=== PATIENT | male | born 1960 | race Caucasian/White ===

== ENCOUNTER 2020-11-14 09:54 | Outpatient (CLI) | payer MEDICAID, SELFPAY ==
[2020-11-14 11:32] LABS: Alanine Aminotransferase 18 U/L (0-41); Albumin Level 3.4 g/dL (3.5-5.2); Alkaline Phosphatase 111 IU/L (40-130); Anion Gap 20.3 (5-19); Aspartate Amino Transferase 20 U/L (0-40); Blood Urea Nitrogen 13 mg/dL (6-20); Calcium 8.4 mg/dL (8.5-10.5); Carbon Dioxide 19 mmol/L (22-29); Chloride 102 mmol/L (98-107); Globulin 3.2 g/dL (1.3-4.6); Glomerular Filtration Rate 115.4 mL/min (90-130); Glucose 120 mg/dL (65-115); NT Pro B Type Natriuretic Pept 7012 pg/mL (0-125); Osmolality Calculated 285 mOsm/kg (285-295); Potassium 4.3 mmol/L (3.5-5.1); Sodium 137 mmol/L (136-145); Total Bilirubin 0.7 mg/dL (0.15-1.2); Total Protein 6.6 g/dL (6.6-8.7)
== END 2020-11-14 09:55 | disposition home or self-care (01) ==
PROVIDERS: PCP Nurse Practitioner Family; Visit Provider Nurse Practitioner Family
DX: I50.9 Heart failure, unspecified (principal)
CPT/HCPCS: 36415; 80053; 83880

== ENCOUNTER → 2020-11-30 11:07 | Outpatient (BNVA) | payer MEDICAID, SELFPAY | PROVIDERS: PCP Nurse Practitioner Family; Visit Provider Nurse Practitioner Family | DX: Z79.01 Long term (current) use of anticoagulants (principal) | CPT/HCPCS: 85610 ==

== ENCOUNTER → 2020-12-03 15:25 | Outpatient (BNVA) | payer MEDICAID, SELFPAY | PROVIDERS: PCP Nurse Practitioner Family; Visit Provider Internal Medicine Cardiovascular Disease | DX: I50.33 Acute on chronic diastolic (congestive) heart failure (principal); Z95.810 Presence of automatic (implantable) cardiac defibrillator; R06.02 Shortness of breath; E78.5 Hyperlipidemia, unspecified; R06.00 Dyspnea, unspecified; I25.119 Atherosclerotic heart disease of native coronary artery with unspecified angina pectoris; I51.3 Intracardiac thrombosis, not elsewhere classified; I48.91 Unspecified atrial fibrillation; I50.22 Chronic systolic (congestive) heart failure; Z79.01 Long term (current) use of anticoagulants | CPT/HCPCS: 80048; 80061; 83880; 85610 ==

== ENCOUNTER 2020-12-08 14:27 | Outpatient (CLI) | payer MEDICAID, SELFPAY ==
--- NOTE | 2020-12-08 15:00 | USCV_ITS ---
Jaime Daugherty Age: 60 Gender: M : 1960 Exam Date: 12/08/2020 14:52 Ordering Phys: Soheila Porter MD ([email or web address]) Technologist: Laurie Cason Exam Location: [facility] [place] Indication: dyspnea, unspecified BP: 96 / 60 HR: 91 Rhythm: Sinus Technical Quality: Adequate MEASUREMENTS (Male / Female) Normal Values 2D ECHO LV Diastolic Diameter PLAX 5.1 cm 4.2 - 5.9 / 3.9 - 5.3 cm LV Systolic Diameter PLAX 3.9 cm IVS Diastolic Thickness 1.4 cm 0.6 - 1.0 / 0.6 - 0.9 cm IVS Systolic Thickness 1.2 cm LVPW Diastolic Thickness 1.0 cm 0.6 - 1.0 / 0.6 - 0.9 cm LVPW Systolic Thickness 1.7 cm LVOT Diameter 2.1 cm LV Ejection Fraction 2D Teich 46.5 % LV Ejection Fraction MOD 2C 29.2 % LV Ejection Fraction 2C AL 28.9 % LA Diameter 4.0 cm LA Width 3.9 cm LA Height 6.3 cm RA Width 3.3 cm RA Height 4.8 cm Aorta at Sinotubular Diameter 3.1 cm DOPPLER AV Peak Velocity 103.0 cm/s LVOT Peak Velocity 92.0 cm/s AV Area Cont Eq vti 3.1 cm squared AV Area Cont Eq pk 3.0 cm squared MV Peak Velocity 120.0 cm/s MV Area PHT 5.5 cm squared Mitral E to A Ratio 7.0 MV E' Velocity 57.5 cm/s Mitral E to MV E' Ratio 14.6 Mitral E to LV E' Lateral Ratio 10.6 Mitral E to LV E' Septal Ratio 23.3 TR Peak Velocity 74.7 cm/s TR Peak Gradient 2.2 mmHg Right Atrial Pressure 3.0 mmHg Pulmonary Artery Systolic Pressu 5.2 mmHg PV Peak Velocity 52.0 cm/s RV Acceleration Time 0.1 s RV Ejection Time 0.3 s RV AcT/ET 0.2 FINDINGS Left Ventricle Mildly dilated LV cavity. Severe diffuse hypokinesia of the septum and anteroseptal segments. Almost akinetic LV apex. Echodensity in the LV apex, suggesting organized thrombus. LV ejection fraction around 29% Right Ventricle ICD leads in the right ventricle. Right Atrium Pacemaker/ICD wires Left Atrium Mildly increased left atrial size. Mitral Valve Moderate mitral valve regurgitation. Minimally thickened mitral valves Aortic Valve No gross abnormalities noted Tricuspid Valve No gross abnormalities noted Pulmonic Valve Not visualized well Pericardium No pericardial effusion. Aorta Normal aortic annulus size. CONCLUSIONS Mildly dilated LV cavity. Multiple wall motion abnormalities as mentioned above. Organized to LV apical thrombus LV ejection fraction around 29%. Mildly increased left atrial size. Pacemaker/ICD wire on the right atrium right ventricle Moderate mitral valve regurgitation. There is no pericardial effusion. No previous study is available for comparison. Dr Soheila Porter MD FACC (Electronically Signed) Final Date: 08 December 2020 19:01 S
== END 2020-12-08 14:28 | disposition home or self-care (01) ==
LOC: US 14:27
PROVIDERS: PCP Nurse Practitioner Family; Visit Provider Internal Medicine Cardiovascular Disease
DX: R06.00 Dyspnea, unspecified (principal); Z95.810 Presence of automatic (implantable) cardiac defibrillator; I34.0 Nonrheumatic mitral (valve) insufficiency
CPT/HCPCS: 93306

== ENCOUNTER → 2021-01-11 11:43 | Outpatient (BNVA) | payer MEDICAID, SELFPAY | PROVIDERS: PCP Nurse Practitioner Family; Visit Provider Nurse Practitioner Family | DX: I50.22 Chronic systolic (congestive) heart failure (principal); I50.1 Left ventricular failure, unspecified; Z79.01 Long term (current) use of anticoagulants | CPT/HCPCS: 83880; 85610 ==

== ENCOUNTER → 2021-01-21 10:06 | Outpatient (BNVA) | payer MEDICAID, SELFPAY | PROVIDERS: PCP Nurse Practitioner Family; Visit Provider Nurse Practitioner Family | DX: I50.22 Chronic systolic (congestive) heart failure (principal) | CPT/HCPCS: 83880; 85610 ==

== ENCOUNTER → 2021-02-01 13:14 | Outpatient (BNVA) | payer MEDICAID, SELFPAY | PROVIDERS: PCP Nurse Practitioner Family; Visit Provider Nurse Practitioner Family | DX: Z79.01 Long term (current) use of anticoagulants (principal) | CPT/HCPCS: 85610 ==

== ENCOUNTER → 2021-02-10 10:46 | Outpatient (BNVA) | payer MEDICAID, SELFPAY | PROVIDERS: PCP Nurse Practitioner Family; Visit Provider Nurse Practitioner Family | DX: I50.9 Heart failure, unspecified (principal); Z79.01 Long term (current) use of anticoagulants; I50.22 Chronic systolic (congestive) heart failure | CPT/HCPCS: 83880; 85610 ==

== ENCOUNTER → 2021-02-24 09:17 | Outpatient (BNVA) | payer MEDICAID, SELFPAY | PROVIDERS: PCP Nurse Practitioner Family; Visit Provider Nurse Practitioner Family | DX: Z79.01 Long term (current) use of anticoagulants (principal) | CPT/HCPCS: 85610 ==

== ENCOUNTER → 2021-03-31 10:15 | Outpatient (BNVA) | payer MEDICAID, SELFPAY | PROVIDERS: PCP Nurse Practitioner Family; Visit Provider Nurse Practitioner Family | DX: I21.9 Acute myocardial infarction, unspecified (principal); I50.22 Chronic systolic (congestive) heart failure; Z79.01 Long term (current) use of anticoagulants | CPT/HCPCS: 85610 ==

== ENCOUNTER → 2021-04-14 10:02 | Outpatient (BNVA) | payer MEDICAID, SELFPAY | PROVIDERS: PCP Nurse Practitioner Family; Visit Provider Nurse Practitioner Family | DX: Z79.01 Long term (current) use of anticoagulants (principal) | CPT/HCPCS: 85610 ==

== ENCOUNTER → 2021-05-11 10:27 | Outpatient (BNVA) | payer MEDICAID, SELFPAY | PROVIDERS: PCP Nurse Practitioner Family; Visit Provider Nurse Practitioner Family | DX: I10 Essential (primary) hypertension (principal); Z51.81 Encounter for therapeutic drug level monitoring; I50.22 Chronic systolic (congestive) heart failure; Z79.01 Long term (current) use of anticoagulants | CPT/HCPCS: 80053; 85025 ==

== ENCOUNTER 2021-06-29 12:31 | Outpatient (CLI) | payer MEDICAID, SELFPAY ==
[2021-06-29 13:19] LABS: Alanine Aminotransferase 10 U/L (0-41); Alkaline Phosphatase 93 IU/L (40-130); Anion Gap 15.5 (5-19); Aspartate Amino Transferase 19 U/L (0-40); Blood Urea Nitrogen 18 mg/dL (8-23); Calcium 9.5 mg/dL (8.5-10.5); Carbon Dioxide 24 mmol/L (22-29); Chloride 105 mmol/L (98-107); Globulin 3.4 g/dL (1.3-4.6); Glomerular Filtration Rate 86.1 mL/min (90-130); Glucose 118 mg/dL (65-115); INR 1.03 (0.8-1.2); Osmolality Calculated 293 mOsm/kg (285-295); Potassium 4.5 mmol/L (3.5-5.1); Sodium 140 mmol/L (136-145); Total Bilirubin 0.3 mg/dL (0.15-1.2); Total Protein 7.4 g/dL (6.6-8.7)
== END 2021-06-29 12:32 | disposition home or self-care (01) ==
LOC: LAB 12:34
PROVIDERS: PCP Nurse Practitioner Family; Visit Provider Nurse Practitioner Family
DX: Z79.01 Long term (current) use of anticoagulants (principal); I10 Essential (primary) hypertension
CPT/HCPCS: 36415; 80053; 85610

== ENCOUNTER 2021-08-10 11:25 | Outpatient (CLI) | payer MEDICAID, SELFPAY ==
[2021-08-10 12:38] LABS: INR 1.79 (0.8-1.2)
== END 2021-08-10 11:26 | disposition home or self-care (01) ==
LOC: LAB 11:28
PROVIDERS: PCP Nurse Practitioner Family; Visit Provider Nurse Practitioner Family
DX: Z79.01 Long term (current) use of anticoagulants (principal)
CPT/HCPCS: 85610

== ENCOUNTER 2021-08-17 08:03 | Outpatient (CLI) | payer MEDICAID, SELFPAY ==
[2021-08-17 08:55] LABS: INR 3.23 (0.8-1.2)
== END 2021-08-17 08:04 | disposition home or self-care (01) ==
LOC: LAB 08:07
PROVIDERS: PCP Nurse Practitioner Family; Visit Provider Nurse Practitioner Family
DX: Z79.01 Long term (current) use of anticoagulants (principal)
CPT/HCPCS: 36415; 85610

== ENCOUNTER → 2021-08-26 10:36 | Outpatient (BNVA) | payer MEDICAID, SELFPAY | PROVIDERS: PCP Nurse Practitioner Family; Visit Provider Internal Medicine Cardiovascular Disease | DX: I50.22 Chronic systolic (congestive) heart failure (principal); I51.3 Intracardiac thrombosis, not elsewhere classified; Z95.810 Presence of automatic (implantable) cardiac defibrillator; I25.119 Atherosclerotic heart disease of native coronary artery with unspecified angina pectoris; Z79.01 Long term (current) use of anticoagulants; F17.200 Nicotine dependence, unspecified, uncomplicated | CPT/HCPCS: 80048; 83880; 99214 ==

== ENCOUNTER 2021-10-25 09:07 | Outpatient (CLI) | payer MEDICAID, SELFPAY ==
[2021-10-25 09:34] LABS: INR 1.52 (0.8-1.2)
== END 2021-10-25 09:08 | disposition home or self-care (01) ==
LOC: LAB 09:10
PROVIDERS: PCP Nurse Practitioner Family; Visit Provider Nurse Practitioner Family
DX: Z79.01 Long term (current) use of anticoagulants (principal)
CPT/HCPCS: 36415; 85610

== ENCOUNTER 2021-11-08 09:11 | Outpatient (CLI) | payer MEDICAID, SELFPAY ==
[2021-11-08 09:56] LABS: INR 1.25 (0.8-1.2)
== END 2021-11-08 09:12 | disposition home or self-care (01) ==
LOC: LAB 09:13
PROVIDERS: PCP Nurse Practitioner Family; Visit Provider Nurse Practitioner Family
DX: Z79.01 Long term (current) use of anticoagulants (principal)
CPT/HCPCS: 36415; 85610

== ENCOUNTER 2021-11-22 08:27 | Outpatient (CLI) | payer MEDICAID, SELFPAY ==
[2021-11-22 09:04] LABS: INR 2.18 (0.8-1.2)
== END 2021-11-22 08:28 | disposition home or self-care (01) ==
PROVIDERS: PCP Nurse Practitioner Family; Visit Provider Nurse Practitioner Family
DX: I25.119 Atherosclerotic heart disease of native coronary artery with unspecified angina pectoris (principal); I50.22 Chronic systolic (congestive) heart failure; Z79.01 Long term (current) use of anticoagulants
CPT/HCPCS: 36415; 85610

== ENCOUNTER 2021-12-13 08:52 | Outpatient (CLI) | payer MEDICAID, SELFPAY ==
[2021-12-13 12:07] LABS: INR 1.52 (0.8-1.2)
== END 2021-12-13 08:53 | disposition home or self-care (01) ==
PROVIDERS: PCP Nurse Practitioner Family; Visit Provider Nurse Practitioner Family
DX: Z79.01 Long term (current) use of anticoagulants (principal)
CPT/HCPCS: 36415; 85610

== ENCOUNTER 2021-12-21 09:29 | Outpatient (CLI) | payer MEDICAID, SELFPAY ==
[2021-12-21 10:08] LABS: INR 3.01 (0.8-1.2)
== END 2021-12-21 09:30 | disposition home or self-care (01) ==
LOC: LAB 09:35
PROVIDERS: PCP Nurse Practitioner Family; Visit Provider Nurse Practitioner Family
DX: Z79.01 Long term (current) use of anticoagulants (principal)
CPT/HCPCS: 36415; 85610

== ENCOUNTER 2022-02-09 10:18 | Outpatient (CLI) | payer MEDICAID, SELFPAY ==
[2022-02-09 11:07] LABS: INR 1.51 (0.8-1.2)
== END 2022-02-09 10:19 | disposition home or self-care (01) ==
LOC: LAB 10:20
PROVIDERS: PCP Nurse Practitioner Family; Visit Provider Nurse Practitioner Family
DX: Z79.01 Long term (current) use of anticoagulants (principal)
CPT/HCPCS: 36415; 85610

== ENCOUNTER 2022-02-18 11:18 | Outpatient (CLI) | payer MEDICAID, SELFPAY ==
[2022-02-18 12:02] LABS: INR 1.71 (0.8-1.2)
== END 2022-02-18 11:19 | disposition home or self-care (01) ==
LOC: LAB 11:21
PROVIDERS: PCP Nurse Practitioner Family; Visit Provider Nurse Practitioner Family
DX: Z79.01 Long term (current) use of anticoagulants (principal)
CPT/HCPCS: 36415; 85610

== ENCOUNTER → 2022-03-03 11:40 | Outpatient (BNVA) | payer MEDICAID, SELFPAY | PROVIDERS: PCP Nurse Practitioner Family; Visit Provider Internal Medicine Cardiovascular Disease | DX: R06.02 Shortness of breath (principal); I48.91 Unspecified atrial fibrillation | CPT/HCPCS: 80048; 83880; 85610 ==

== ENCOUNTER → 2022-03-18 10:19 | Outpatient (BNVA) | payer MEDICAID, SELFPAY | PROVIDERS: PCP Nurse Practitioner Family; Visit Provider Nurse Practitioner Family | DX: R73.09 Other abnormal glucose (principal); E78.5 Hyperlipidemia, unspecified; I10 Essential (primary) hypertension; R73.9 Hyperglycemia, unspecified | CPT/HCPCS: 80061; 83036 ==

== ENCOUNTER 2022-04-05 10:11 | Outpatient (CLI) | payer MEDICAID, SELFPAY ==
[2022-04-05 11:01] LABS: INR 1.95 (0.8-1.2)
== END 2022-04-05 10:12 | disposition home or self-care (01) ==
LOC: LAB 10:15
PROVIDERS: PCP Nurse Practitioner Family; Visit Provider Nurse Practitioner Family
DX: Z79.01 Long term (current) use of anticoagulants (principal)
CPT/HCPCS: 36415; 85610

== ENCOUNTER 2022-05-04 10:16 | Outpatient (CLI) | payer MEDICAID, SELFPAY | END 2022-05-04 10:17 | disposition home or self-care (01) | LOC: LAB 10:19 | PROVIDERS: PCP Nurse Practitioner Family; Visit Provider Nurse Practitioner Family | DX: Z79.01 Long term (current) use of anticoagulants (principal) | CPT/HCPCS: 36415; 85610 ==

== ENCOUNTER 2022-06-01 09:31 | Outpatient (CLI) | payer MEDICAID, SELFPAY ==
[2022-06-01 10:32] LABS: INR 1.87 (0.8-1.2)
== END 2022-06-01 09:32 | disposition home or self-care (01) ==
LOC: LAB 09:32
PROVIDERS: PCP Nurse Practitioner Family; Visit Provider Nurse Practitioner Family
DX: Z79.01 Long term (current) use of anticoagulants (principal)
CPT/HCPCS: 36415; 85610

== ENCOUNTER 2022-07-06 10:15 | Outpatient (CLI) | payer MEDICAID, SELFPAY ==
[2022-07-06 10:42] LABS: INR 2.77 (0.8-1.2)
== END 2022-07-06 10:16 | disposition home or self-care (01) ==
LOC: LAB 10:16
PROVIDERS: PCP Nurse Practitioner Family; Visit Provider Nurse Practitioner Family
DX: Z79.01 Long term (current) use of anticoagulants (principal)
CPT/HCPCS: 36415; 85610

== ENCOUNTER 2022-08-17 09:31 | Outpatient (CLI) | payer MEDICAID, SELFPAY ==
[2022-08-17 10:31] LABS: INR 1.05 (0.8-1.2)
== END 2022-08-17 09:32 | disposition home or self-care (01) ==
PROVIDERS: PCP Nurse Practitioner Family; Visit Provider Nurse Practitioner Family
DX: Z79.01 Long term (current) use of anticoagulants (principal)
CPT/HCPCS: 36415; 85610

== ENCOUNTER 2022-08-31 11:36 | Outpatient (CLI) | payer MEDICAID, SELFPAY ==
[2022-08-31 12:07] LABS: INR 2.14 (0.8-1.2)
== END 2022-08-31 11:37 | disposition home or self-care (01) ==
PROVIDERS: PCP Nurse Practitioner Family; Visit Provider Nurse Practitioner Family
DX: Z79.01 Long term (current) use of anticoagulants (principal)
CPT/HCPCS: 85610

== ENCOUNTER 2022-09-14 12:20 | Outpatient (CLI) | payer MEDICAID, SELFPAY ==
[2022-09-14 12:56] LABS: INR 2.86 (0.8-1.2)
[2022-09-14 13:08] LABS: Alanine Aminotransferase 18 U/L (0-41); Albumin Level 3.9 g/dL (3.5-5.2); Alkaline Phosphatase 118 U/L (40-130); Aspartate Amino Transferase 15 U/L (0-40); Chloride 104 mmol/L (98-107); Chol HDL Ratio 4.25 mg/dL (1.0-5.00); Cholesterol 153 mg/dL (0-200); Glucose 104 mg/dL (65-115); HDL Cholesterol 36 mg/dL (60-100); LDL Cholesterol Calculated 69 mg/dL (50-129); LDL HDL Ratio 1.92 RATIO (0.00-3.22); Potassium 4.4 mmol/L (3.5-5.1); Sodium 136 mmol/L (136-145); Triglycerides 242 mg/dL (0-150)
[2022-09-14 13:32] LABS: Anion Gap 15.4 (5-19); Blood Urea Nitrogen 19 mg/dL (8-23); Carbon Dioxide 21 mmol/L (22-29); Osmolality Calculated 285 mOsm/kg (285-295); Total Bilirubin 0.3 mg/dL (0.15-1.2)
[2022-09-14 14:00] LABS: Globulin 3.3 g/dL (1.3-4.6); Total Protein 7.2 g/dL (6.6-8.7)
== END 2022-09-14 12:21 | disposition home or self-care (01) ==
PROVIDERS: PCP Nurse Practitioner Family; Visit Provider Nurse Practitioner Family
DX: I10 Essential (primary) hypertension (principal); I70.90 Unspecified atherosclerosis; Z79.01 Long term (current) use of anticoagulants
CPT/HCPCS: 80053; 80061; 85610

== ENCOUNTER 2022-10-06 10:46 | Outpatient (CLI) | payer MEDICAID, SELFPAY ==
[2022-10-06 11:13] LABS: INR 3.31 (0.8-1.2)
== END 2022-10-06 10:47 | disposition home or self-care (01) ==
PROVIDERS: PCP Nurse Practitioner Family; Visit Provider Nurse Practitioner Family
DX: Z79.01 Long term (current) use of anticoagulants (principal)
CPT/HCPCS: 36415; 85610

== ENCOUNTER 2022-10-10 13:21 | Outpatient (CLI) | payer MEDICAID, SELFPAY ==
[2022-10-10 14:02] LABS: INR 1.25 (0.8-1.2)
== END 2022-10-10 13:22 | disposition home or self-care (01) ==
PROVIDERS: PCP Nurse Practitioner Family; Visit Provider Nurse Practitioner Family
DX: Z79.01 Long term (current) use of anticoagulants (principal)
CPT/HCPCS: 36415; 85610

== ENCOUNTER 2022-12-01 13:04 | Outpatient (CLI) | payer MEDICAID, SELFPAY ==
[2022-12-01 13:28] LABS: INR 3.27 (0.8-1.2)
== END 2022-12-01 13:05 | disposition home or self-care (01) ==
PROVIDERS: PCP Nurse Practitioner Family; Visit Provider Nurse Practitioner Family
DX: I50.9 Heart failure, unspecified (principal)
CPT/HCPCS: 36415; 85610

== ENCOUNTER → 2022-12-08 08:30 | Outpatient (BNVA) | payer MEDICAID, SELFPAY | PROVIDERS: PCP Nurse Practitioner Family; Visit Provider Family Medicine | DX: Z79.01 Long term (current) use of anticoagulants (principal); I51.3 Intracardiac thrombosis, not elsewhere classified | CPT/HCPCS: 85610 ==

== ENCOUNTER 2022-12-20 10:56 | Outpatient (CLI) | payer MEDICAID, SELFPAY ==
[2022-12-20 12:04] LABS: INR 2.39 (0.8-1.2)
== END 2022-12-20 10:57 | disposition home or self-care (01) ==
PROVIDERS: PCP Nurse Practitioner Family; Visit Provider Nurse Practitioner Family
DX: I25.10 Atherosclerotic heart disease of native coronary artery without angina pectoris (principal)
CPT/HCPCS: 36415; 85610

== ENCOUNTER 2023-01-12 12:55 | Outpatient (CLI) | payer MEDICAID, SELFPAY ==
[2023-01-12 13:50] LABS: INR 2.67 (0.8-1.2)
== END 2023-01-12 12:56 | disposition home or self-care (01) ==
PROVIDERS: PCP Nurse Practitioner Family; Visit Provider Nurse Practitioner Family
DX: Z01.89 Encounter for other specified special examinations (principal)
CPT/HCPCS: 36415; 85610

== ENCOUNTER 2023-01-25 13:34 | Outpatient (CLI) | payer MEDICAID, SELFPAY ==
[2023-01-25 13:59] LABS: INR 2.13 (0.8-1.2)
== END 2023-01-25 13:35 | disposition home or self-care (01) ==
LOC: LAB 13:36
PROVIDERS: PCP Nurse Practitioner Family; Visit Provider Nurse Practitioner Family
DX: Z01.89 Encounter for other specified special examinations (principal)
CPT/HCPCS: 36415; 85610

== ENCOUNTER 2023-02-28 07:35 | Outpatient (CLI) | payer MEDICAID, SELFPAY ==
[2023-02-28 08:03] LABS: INR 1.82 (0.8-1.2)
== END 2023-02-28 07:36 | disposition home or self-care (01) ==
LOC: LAB 07:37
PROVIDERS: PCP Nurse Practitioner Family; Visit Provider Nurse Practitioner Family
DX: Z01.89 Encounter for other specified special examinations (principal)
CPT/HCPCS: 36415; 85610

== ENCOUNTER → 2023-03-01 09:26 | Outpatient (BNVA) | payer MEDICAID, SELFPAY | PROVIDERS: PCP Nurse Practitioner Family; Visit Provider Nurse Practitioner Family | DX: R53.83 Other fatigue (principal); I10 Essential (primary) hypertension; E78.5 Hyperlipidemia, unspecified | CPT/HCPCS: 80053; 80061; 85025 ==

== ENCOUNTER 2023-03-28 08:39 | Outpatient (CLI) | payer MEDICAID, SELFPAY ==
[2023-03-28 09:08] LABS: INR 2.18 (0.8-1.2)
== END 2023-03-28 08:40 | disposition home or self-care (01) ==
LOC: LAB 08:40
PROVIDERS: PCP Nurse Practitioner Family; Visit Provider Nurse Practitioner Family
DX: I25.10 Atherosclerotic heart disease of native coronary artery without angina pectoris (principal)
CPT/HCPCS: 36415; 85610

== ENCOUNTER → 2023-04-05 10:00 | Outpatient (BNVA) | payer MEDICAID, SELFPAY | PROVIDERS: PCP Nurse Practitioner Family; Visit Provider Nurse Practitioner Family | DX: D58.2 Other hemoglobinopathies (principal); E78.2 Mixed hyperlipidemia; D72.829 Elevated white blood cell count, unspecified | CPT/HCPCS: 80061; 85007; 85025 ==

== ENCOUNTER → 2023-04-19 14:02 | Outpatient (BNVA) | payer MEDICAID, SELFPAY | PROVIDERS: PCP Nurse Practitioner Family; Visit Provider Nurse Practitioner Family | DX: D72.829 Elevated white blood cell count, unspecified (principal) | CPT/HCPCS: 85025 ==

== ENCOUNTER 2023-05-02 07:32 | Outpatient (CLI) | payer MEDICAID, SELFPAY | END 2023-05-02 07:33 | disposition home or self-care (01) | LOC: LAB 07:33 | PROVIDERS: PCP Nurse Practitioner Family; Visit Provider Nurse Practitioner Family | DX: I25.10 Atherosclerotic heart disease of native coronary artery without angina pectoris (principal) | CPT/HCPCS: 36415; 85610 ==

== ENCOUNTER 2023-06-13 07:51 | Outpatient (CLI) | payer MEDICAID, SELFPAY ==
[2023-06-13 08:24] LABS: INR 1.65 (0.8-1.2)
== END 2023-06-13 07:52 | disposition home or self-care (01) ==
LOC: LAB 07:53
PROVIDERS: PCP Nurse Practitioner Family; Visit Provider Nurse Practitioner Family
DX: I25.10 Atherosclerotic heart disease of native coronary artery without angina pectoris (principal)
CPT/HCPCS: 36415; 85610

== ENCOUNTER 2023-06-27 07:54 | Outpatient (CLI) | payer MEDICAID, SELFPAY ==
[2023-06-27 08:27] LABS: INR 2.03 (0.8-1.2)
== END 2023-06-27 07:55 | disposition home or self-care (01) ==
LOC: LAB 07:57
PROVIDERS: PCP Nurse Practitioner Family; Visit Provider Nurse Practitioner Family
DX: I25.10 Atherosclerotic heart disease of native coronary artery without angina pectoris (principal); Z79.01 Long term (current) use of anticoagulants
CPT/HCPCS: 36415; 85610

== ENCOUNTER 2023-07-25 07:22 | Outpatient (CLI) | payer MEDICAID, SELFPAY ==
[2023-07-25 07:53] LABS: INR 3.22 (0.8-1.2)
== END 2023-07-25 07:23 | disposition home or self-care (01) ==
PROVIDERS: PCP Nurse Practitioner Family; Visit Provider Nurse Practitioner Family
DX: I25.10 Atherosclerotic heart disease of native coronary artery without angina pectoris (principal)
CPT/HCPCS: 36415; 85610

== ENCOUNTER 2023-08-15 07:40 | Outpatient (CLI) | payer MEDICAID, SELFPAY ==
[2023-08-15 08:35] LABS: Partial Thromboplastin Time 56.6 SECONDS (23.9-36.7)
[2023-08-15 08:59] LABS: INR 4.04 (0.8-1.2)
== END 2023-08-15 07:41 | disposition home or self-care (01) ==
LOC: LAB 07:41
PROVIDERS: PCP Nurse Practitioner Family; Visit Provider Nurse Practitioner Family
DX: I25.10 Atherosclerotic heart disease of native coronary artery without angina pectoris (principal)
CPT/HCPCS: 36415; 85610; 85730

== ENCOUNTER → 2023-08-17 15:40 | Outpatient (BNVA) | payer MEDICAID, SELFPAY | PROVIDERS: PCP Nurse Practitioner Family; Visit Provider Nurse Practitioner Family | DX: Z51.81 Encounter for therapeutic drug level monitoring (principal); Z79.01 Long term (current) use of anticoagulants | CPT/HCPCS: 85610 ==

== ENCOUNTER → 2023-08-18 13:20 | Outpatient (BNVA) | payer MEDICAID, SELFPAY | PROVIDERS: PCP Nurse Practitioner Family; Visit Provider Nurse Practitioner Family | DX: I51.3 Intracardiac thrombosis, not elsewhere classified (principal) | CPT/HCPCS: 85610 ==

== ENCOUNTER 2023-09-26 07:26 | Outpatient (CLI) | payer MEDICAID, SELFPAY ==
[2023-09-26 08:20] LABS: INR 2.02 (0.8-1.2)
== END 2023-09-26 07:27 | disposition home or self-care (01) ==
PROVIDERS: PCP Nurse Practitioner Family; Visit Provider Nurse Practitioner Family
DX: I25.119 Atherosclerotic heart disease of native coronary artery with unspecified angina pectoris (principal)
CPT/HCPCS: 36415; 85610

== ENCOUNTER → 2023-10-12 08:47 | Outpatient (BNVA) | payer MEDICAID, SELFPAY | PROVIDERS: PCP Nurse Practitioner Family; Visit Provider Nurse Practitioner Family | DX: I51.3 Intracardiac thrombosis, not elsewhere classified (principal) | CPT/HCPCS: 85610 ==

== ENCOUNTER → 2023-10-13 09:02 | Outpatient (BNVA) | payer MEDICAID, SELFPAY | PROVIDERS: PCP Nurse Practitioner Family; Visit Provider Nurse Practitioner Family | DX: Z79.01 Long term (current) use of anticoagulants (principal) | CPT/HCPCS: 85610 ==

== ENCOUNTER 2023-10-15 19:40 | Observation (INO) | payer MEDICAID, SELFPAY ==
[2023-10-15] VITALS (9 sets, daily range): BP systolic 91–136; BP diastolic 62–94; PULSE 82–88; RESP 16; TEMP 36.8; O2SAT 91–95; BMI 31.4
--- NOTE | 2023-10-15 19:45 | ECG_ITS ---
[facility] Test Date: 2023-10-15 Pat Name: Jaime Daugherty Department: Room: Gender: Male Support Services Coordinator: : 1960 Requested By: Santos Manley Order Number: [id number] Shade MD: West Wylie M.D. Measurements Intervals [employer] Rate: 89 P: 65 [place]: 155 QRS: -60 QRSD: 92 T: 103 QT: 353 QTc: 431 Interpretive Statements SINUS RHYTHM POSSIBLE RIGHT ATRIAL ENLARGEMENT [0.25mV P-WAVE] LEFT AXIS DEVIATION [QRS AXIS < -30] LOW QRS VOLTAGE IN PRECORDIAL LEADS [QRS DEFLECTION < 1.0 mV IN CHEST LEADS] ANTEROSEPTAL MYOCARDIAL INFARCTION , OF INDETERMINATE AGE [40+ ms Q WAVE IN V1-V4] No previous ECG available for comparison Electronically Signed On 10-16-2023 14:09:34 CDT by West Wylie M.D. [id number]
[2023-10-15 19:51] LABS: Glucose Point of Care 107 mg/dL (70-110)
--- NOTE | 2023-10-15 20:20 | CTR_ITS ---
PROCEDURE INFORMATION: Exam: CT Head Without Contrast Exam date and time: 10/15/2023 8:51 PM Age: 63 years old Clinical indication: Syncope and collapse; Patient HX: Syncope with fall. Anticoagulated. ; Additional info: Anticoagulated, fall, ? head injury TECHNIQUE: Imaging protocol: Computed tomography of the head without contrast. Radiation optimization: All CT scans at this facility use at least one of these dose optimization techniques: automated exposure control; mA and/or kV adjustment per patient size (includes targeted exams where dose is matched to clinical indication); or iterative reconstruction. COMPARISON: No relevant prior studies available. RADIATION DOSE METRICS: Total DLP (mGy-cm): 1142.78 FINDINGS: Brain: Focal hypodensity within the right basal ganglia (series 3, image 28) may represent an age-indeterminate infarct. No acute intracranial hemorrhage. No mass effect or midline shift. Cerebral ventricles: No ventriculomegaly. Paranasal sinuses: Visualized sinuses are unremarkable. No fluid levels. Mastoid air cells: Visualized mastoid air cells are well aerated. Bones: Unremarkable. No acute fracture. Soft tissues: Unremarkable. CT/CT head wo con* [id number] IMPRESSION: Focal hypodensity within the right basal ganglia (series 3, image 28) may represent an age-indeterminate infarct. No acute intracranial hemorrhage. COMMENT: THIS REPORT CONTAINS FINDINGS THAT MAY BE CRITICAL TO PATIENT CARE. The exam findings were verbally communicated by me to RICH MONTIEL via telephone conference at 9:55 PM CDT on 10/15/2023. The findings were acknowledged and understood.
--- NOTE | 2023-10-15 20:20 | W.ED.SYNCOPE ---
HPI - Syncope General: Chief Complaint: Syncope Stated Complaint: near syncope Time Seen by Provider: 10/15/23 20:10 Source: patient History of Present Illness: Patient is a 63-year-old male with a history of congestive heart failure due to a large anterior wall MN and suffered an ischemic cardiomyopathy with a low ejection fraction and a left ventricular thrombus. He is anticoagulated with warfarin. He also has COPD, tobacco abuse, anemia and hypertension as well as dyslipidemia. Patient states he has had some generalized malaise and arthralgias and myalgias the last couple of days. He has had some intermittent headaches and states that today he was out watering plants at his mother's house and shortly after going inside he began to feel lightheaded and dizzy and knew that he was about to pass out. He then collapsed with syncope. He regained consciousness within a few moments. He was noted to be severely hypotensive by EMS and was given IV fluid bolus and a push dose vasopressor due to hypotension. He has no complaints currently denies any chest pain or shortness of breath currently. MD complaint: loss of consciousness and collapsed Associated symptoms: Reports headache(s); Deny abdominal pain, chest pain, fever(s) or nausea Review of Systems Const: Denies: fever(s), chills or diaphoresis Card: Reports: syncope; Denies: chest pain Resp: Denies: dyspnea GI: Denies: abdominal pain, nausea or vomiting Skin/Breast: Denies: rash Neuro: Reports: headache(s) [facility] PFSH: Medical History (Updated 10/15/23 @ 22:38 by Rich Montiel MD) Myocardial infarction Atherosclerosis CAD (coronary artery disease) Hypertension Heart failure, left, with LVEF <=30% Anemia COPD (chronic obstructive pulmonary disease) LV (left ventricular) mural thrombus Ischemic cardiomyopathy Bronchitis Family History Father CAD (coronary artery disease) Diabetes Mother Hypertension Sister Cancer Family/Other Stroke Grandfather Stroke Denies family history of Clotting disorder Dementia Chronic kidney disease (CKD) Suicide Anesthesia complication Bleeding disorder Lung disease Social History Smoking and tobacco/nicotine status: current every day tobacco/nicotine user Alcohol intake: current Substance/Drug Use: former Date of last use: amphetamines Physical Exam Const: COMMON NORMALS: no acute distress, average body habitus, alert and well nourished GENERAL APPEARANCE: cooperative ORIENTATION/CONSCIOUSNESS: Yes awake OTHER: Well-appearing 63-year-old male in no acute distress HENMT: COMMON NORMALS: normocephalic and atraumatic HEAD & SCALP: normocephalic and atraumatic Eye: COMMON NORMALS: conjunctivae normal CONJUNCTIVA: Yes conjunctivae normal Neck/C-Spine: GENERAL: Yes normal visual inspection Resp: COMMON NORMALS: normal respiratory effort, No retractions and No use of accessory muscles Cardio: COMMON NORMALS: regular rhythm and Peripheral pulses 2+ throughout RHYTHM: regular rhythm PERIPHERAL PULSES: Peripheral pulses 2+ throughout GI: COMMON NORMALS: Soft to palpation and non-tender PALPATION: Yes Soft to palpation Extremity: COMMON NORMALS: full ROM and no pedal edema Neuro: COMMON NORMALS: no focal motor deficits SENSORIUM/ORIENTATION: Yes alert Skin: COMMON NORMALS: no rashes or lesions noted GENERAL SKIN EXAM: no rashes or lesions noted Course Vital Signs: Vital signs: Vital Signs Temperature 98.2 F 10/15/23 19:41 Pulse Rate 85 10/15/23 19:50 Respiratory Rate 16 10/15/23 19:50 Blood Pressure 93/62 10/15/23 19:50 Pulse Oximetry 94 10/15/23 19:50 Oxygen Delivery Me thod Room Air 10/15/23 19:50 MDM - Syncope Medical Decision Making Patient is a 63-year-old male with a history of congestive heart failure who presents after a syncopal event today. He did feel lightheaded and dizzy just prior to passing out. He denies any associated chest pain or shortness of breath. He has felt generally unwell last few days. He states his INR is supratherapeutic recently and his Coumadin dose was recently decreased. The patient's AICD and pacemaker was interrogated and did not have any events. Basic labs were obtained and did not have any acute abnormalities. His INR is subtherapeutic. He was given a dose of Lovenox here. He was given the additional 3 to 400 mL of IV fluids from the 1 L bag that EMS had started. Head CT does show a focal hypodensity within the right basal ganglia which they say may represent an age-indeterminate infarct. Given the patient's history of congestive heart failure, hypotension, and syncope, I think it is very reasonable for him to be admitted for observation for further management. I spoke with Dr. Velez with hospitalist service will admit for observation to the cardiac stepdown unit. Medical Records I reviewed the patient's medical records. Lab Data I reviewed the patient's lab results. 10/15/23 20:00 10/15/23 20:[address] 10/15/23 20:20 IMPRESSION: Focal hypodensity within the right basal ganglia (series 3, image 28) may represent an age-indeterminate infarct. No acute intracranial hemorrhage. COMMENT: THIS REPORT CONTAINS FINDINGS THAT MAY BE CRITICAL TO PATIENT CARE. The exam findings were verbally communicated by me to RICH MONTIEL via telephone conference at 9:55 PM CDT on 10/15/2023. The findings were acknowledged and understood. Laboratory Results WBC 6.03 10^3/uL (3.29-11.43) 10/15/23 20:00 RBC 4.98 10^6/uL (3.85-5.65) 10/15/23 20:00 Hgb 15.60 g/dL (11.27-16.99) 10/15/23 20:00 Hct 48.0 % (37-53) 10/15/23 20:00 MCV 96.4 fl (82-101) 10/15/23 20:00 MCH 31.3 pg (27-33) 10/15/23 20:00 MCHC 32.5 g/dL (30-55) 10/15/23 20:00 RDW 14.0 % (12.1-15.1) 10/15/23 20:00 Plt Count 150 10^3/cmm (157-399) L 10/15/23 20:00 MPV 10.5 fL (7.4-10.4) H 10/15/23 20:00 Neut % (Auto) 66.5 % 10/15/23 20:00 Lymph % (Auto) 22.2 % 10/15/23 20:00 [place] % (Auto) 10.1 % 10/15/23 20:00 Eos % (Auto) 0.2 % 10/15/23 20:00 Baso % (Auto) 0.3 % 10/15/23 20:00 Neut # (Auto) 4.01 10^3/uL (1.8-7.7) 10/15/23 20:00 Lymph # (Auto) 1.3 10^3/uL (0.8-4.8) 10/15/23 20:00 [place] # (Auto) 0.6 10^3/uL (0.2-0.9) 10/15/23 20:00 Eos # (Auto) 0.0 10^3/uL (0.0-0.8) 10/15/23 20:00 Baso # (Auto) 0.0 10^3/uL (0.0-0.1) 10/15/23 20:00 Nucleated RBC % (auto) 0 % 10/15/23 20:00 Nucleated RBCs # 0.0 /100WBC 10/15/23 20:00 PT 15.50 SECONDS (12.1-14.9) H 10/15/23 20:00 INR 1.19 (0.8-1.2) 10/15/23 20:00 Sodium 136 mmol/L (136-145) 10/15/23 20:00 Potassium 5.2 mmol/L (3.5-5.1) H 10/15/23 20:00 Chloride 100 mmol/L (98-107) 10/15/23 20:00 Carbon Dioxide 22 mmol/L (22-29) 10/15/23 20:00 Anion Gap 19.2 (5-19) H 10/15/23 20:00 BUN 19 mg/dL (8-23) 10/15/23 20:00 Creatinine 1.1 mg/dL (0.7-1.2) 10/15/23 20:00 GFR Calculation 67.8 mL/min (90-130) L 10/15/23 20:00 Glucose 113 mg/dL (65-115) 10/15/23 20:00 POC Glucose 107 mg/dL (70-110) 10/15/23 19:48 Calculated Osmolality 285 mOsm/kg (285-295) 10/15/23 20:00 Calcium 7.2 mg/dL (8.5-10.5) L 10/15/23 20:00 Total Bilirubin 0.2 mg/dL (0.15-1.2) 10/15/23 20:00 AST 27 U/L (0-40) 10/15/23 20:00 ALT 26 U/L (0-41) 10/15/23 20:00 Alkaline Phosphatase 89 U/L (40-130) 10/15/23 20:00 Troponin T Baseline 13 ng/L (0-15) 10/15/23 20:00 Total Protein 5.6 g/dL (6.6-8.7) L 10/15/23 20:00 Albumin 3.5 g/dL (3.5-5.2) 10/15/23 20:00 Globulin 2.1 g/dL (1.3-4.6) 10/15/23 20:00 All radiology interpretation(s) finalized by discharge EKG Data EKG 1: EKG interpretation date: 10/15/23 EKG interpretation time: 19:50 Computer Generated Interpretation: Sinus rhythm. Rate of 89 bpm. Some evidence of atrial enlargement with enlarged P waves. Left axis deviation. Q waves noted in the septal leads. No ST elevations. Discharge Plan Discharge Patient Disposition: Placed in Observation Clinical Impression: Syncope, Congestive heart failure, Acute hypotension, Subtherapeutic international normalized ratio (INR) Condition: Stable Prescriptions: No Action aspirin 81 mg tablet,delayed release (DR/EC) 81 mg PO DAILY spironolactone 25 mg tablet 25 mg PO DAILY Qty: 90 3RF warfarin 6 mg tablet 6 mg PO DIRECTED Qty: 90 3RF Rx Instructions: Take 1 tab as directed per INR results torsemide 20 mg tablet 40 mg PO DAILY Qty: 180 0RF Entresto 97-103 mg tablet 1 tab PO BID Qty: 180 1RF warfarin 1 mg tablet See Rx Instructions .ROUTE .COMPLEX Qty: 30 0RF Dose Instruction: TAKE 1 TABLET BY MOUTH ON TUESDAYS AND THURSDAYS WITH 6 MG TABLET Rx Instructions: TAKE 1 TABLET BY MOUTH ON TUESDAYS AND THURSDAYS WITH 6 MG TABLET atorvastatin 40 mg tablet 40 mg PO DAILY Qty: 90 1RF metoprolol succinate 25 mg tablet extended release 24 hr See Rx Instructions .ROUTE .COMPLEX Qty: 90 0RF Dose Instruction: TAKE 1/2 TABLET BY MOUTH DAILY Rx Instructions: TAKE 1/2 TABLET BY MOUTH DAILY Referrals: Sol De Oliveira FNP [Primary Care Provider] - Coding Level of Care Code ED Facility Maintenance Manager for [facility]
[2023-10-15 20:33] LABS: Basophils % 0.3 %; Eosinophils % 0.2 %; Lymphocytes # 1.3 10^3/uL (0.8-4.8); Lymphocytes % 22.2 %; Mean Corpuscular HGB Conc 32.5 g/dL (30-55); Mean Corpuscular Hemoglobin 31.3 pg (27-33); Mean Corpuscular Volume 96.4 fl (82-101); Mean Platelet Volume 10.5 fL (7.4-10.4); Monocytes # 0.6 10^3/uL (0.2-0.9); Monocytes % 10.1 %; Neutrophils # 4.01 10^3/uL (1.8-7.7); Neutrophils % 66.5 %; Nucleated Red Blood Cells % 0 %; Platelet Count 150 10^3/cmm (157-399); Red Blood Count 4.98 10^6/uL (3.85-5.65); White Blood Count 6.03 10^3/uL (3.29-11.43)
[2023-10-15 20:39] LABS: INR 1.19 (0.8-1.2)
[2023-10-15 20:43] LABS: Troponin(5th) Baseline 13 ng/L (0-15)
[2023-10-15 20:44] LABS: Alanine Aminotransferase 26 U/L (0-41); Albumin Level 3.5 g/dL (3.5-5.2); Alkaline Phosphatase 89 U/L (40-130); Anion Gap 19.2 (5-19); Aspartate Amino Transferase 27 U/L (0-40); Blood Urea Nitrogen 19 mg/dL (8-23); Calcium 7.2 mg/dL (8.5-10.5); Carbon Dioxide 22 mmol/L (22-29); Chloride 100 mmol/L (98-107); Creatinine Clr Calc Pharmacy 84.7001; Globulin 2.1 g/dL (1.3-4.6); Glomerular Filtration Rate 67.8 mL/min (90-130); Glucose 113 mg/dL (65-115); Osmolality Calculated 285 mOsm/kg (285-295); Potassium 5.2 mmol/L (3.5-5.1); Sodium 136 mmol/L (136-145); Total Bilirubin 0.2 mg/dL (0.15-1.2); Total Protein 5.6 g/dL (6.6-8.7)
[2023-10-15] MEDS: lactated ringers 1,000 ML 999 ML IV (20:53)
--- NOTE | 2023-10-15 22:14 | ECG_ITS ---
[facility] Test Date: 2023-10-15 Pat Name: Jaime Daugherty Department: Room: Gender: Male A Operator: : 1960 Requested By: Santos Manley Order Number: [id number] Shade MD: West Wylie M.D. Measurements Intervals [place] Rate: 87 P: 68 [place]: 158 QRS: -73 QRSD: 102 T: 98 QT: 366 QTc: 441 Interpretive Statements SINUS RHYTHM POSSIBLE LEFT ATRIAL ENLARGEMENT [-0.1mV P-WAVE IN V1/V2] LOW QRS VOLTAGE IN PRECORDIAL LEADS [QRS DEFLECTION < 1.0 mV IN CHEST LEADS] LEFT ANTERIOR FASCICULAR BLOCK [QRS AXIS <= -45, QR IN I, RS IN II] ANTEROSEPTAL MYOCARDIAL INFARCTION , OF INDETERMINATE AGE [40+ ms Q WAVE IN V1-V4] Compared to ECG 10/15/2023 19:45:02 Left anterior fascicular block now present Left-axis deviation no longer present Myocardial infarct finding still present Electronically Signed On 10-16-2023 14:16:19 CDT by West Wylie M.D. [id number]
[2023-10-15 22:49] LABS: Troponin 5 2HR 8.14 ng/L (0-15)
[2023-10-15 22:51] LABS: Troponin 5 2HR Delta -4.86 ABS# (0-10)
--- NOTE | 2023-10-15 22:54 | PM.HP ---
Providers/Chief Complaint Primary Care Provider: SHEILA Shetty Chief Complaint: near syncope History of Present Illness Jaime Daugherty is a 63 year old male with a past medical history significant for coronary artery disease with prior large anterior wall RI, ischemic cardiomyopathy, heart failure with reduced ejection fraction status post ICD placement, left ventricular thrombus on warfarin, COPD, tobacco use disorder, dyslipidemia, hypertension, and multiple other comorbidities who presents to the emergency department with syncope with onset prior to arrival. Patient states he was in his usual state of health until about 2 to 3 days ago when he developed generalized malaise, arthralgia, myalgias, and weakness. He reports he was watering plants today outside and shortly after returning inside the symptoms worsen. He developed lightheadedness and dizziness. The symptoms were followed by syncope. He reportedly gained consciousness within a few seconds after his event. He denies prodromal symptoms of chest pain, palpitations, neck pain, or shortness of breath. Denies other alleviating or aggravating factors. Denies sensation of ICD discharge. EMS reported hypotension with systolic blood pressures initially in the 60s. He was treated with IV fluids and vasopressor push. Upon presentation to the emergency department, blood pressure was 91/65. Other vitals were unremarkable. Labs revealed mild hyperkalemia with a potassium of 5.2. INR 1.19. Otherwise his labs were largely unremarkable. EKG was negative for acute ischemic changes. Head CT showed a possible focal hyperdensity in the right basal ganglia which may represent a age-indeterminate infarction per read. There is no acute intercranial hemorrhage identified. Patient denies focal neurologic complaints. ED provider reports interrogation of ICD. Provider reports there were no events on the ICD during the time of syncope. Review of Systems Narrative: A complete review of systems was obtained and is negative except as stated in HPI. Medications/Allergies Home Medications Medication Instructions Recorded Confirmed Last Taken Type aspirin 81 mg tablet,delayed 81 mg PO DAILY 11/30/20 10/16/23 10/15/23 History release sacubitril 97 mg-valsartan 103 mg 1 tab PO BID #180 tabs 12/02/22 10/16/23 10/14/23 Rx tablet (Entresto) warfarin 1 mg tablet See Rx Instructions .Route 12/16/22 10/16/23 10/12/23 Rx .COMPLEX #30 tabs atorvastatin 40 mg tablet 40 mg PO DAILY #90 tabs 04/28/23 10/16/23 10/14/23 Rx warfarin 6 mg tablet 6 mg PO DIRECTED #90 tabs 05/18/23 10/16/23 10/12/23 Rx metoprolol succinate 25 mg 12.5 mg PO DAILY 10/16/23 10/16/23 10/15/23 History tablet,extended release 24 hr Allergies Allergy/AdvReac Type Severity Reaction Status Date / Time No Known Allergies Allergy Verified 05/18/23 12:41 PFSH Acute PFSH: Medical History Myocardial infarction Atherosclerosis CAD (coronary artery disease) Hypertension Heart failure, left, with LVEF <=30% Anemia COPD (chronic obstructive pulmonary disease) LV (left ventricular) mural thrombus Ischemic cardiomyopathy Bronchitis Surgical History History of implantable cardioverter-defibrillator (ICD) placement Family History Father CAD (coronary artery disease) Diabetes Mother Hypertension Sister Cancer Family/Other Stroke Grandfather Stroke Denies family history of Clotting disorder Dementia Chronic kidney disease (CKD) Suicide Anesthesia complication Bleeding disorder Lung disease Social History Smoking and tobacco/nicotine status: current every day tobacco/nicotine user Alcohol intake: current Substance/Drug Use: former Date of last use: amphetamines Vitals/I&O/Wt Last Vital Signs Temp 98.2 F 10/15/23 19:41 Pulse 85 10/15/23 22:30 Resp 16 10/15/23 22:00 BP 136/94 10/15/23 22:30 Pulse Ox 94 10/15/23 22:00 O2 Del Method Room Air 10/15/23 22:00 Weight last 48 hrs Weight 102.058 kg Physical Exam Narrative: General: Patient is awake and alert. Head: Normocephalic. Atraumatic. EOM intact. Neck: No JVD. Cardiovascular: RRR. No gallops. No murmurs. Lungs: Clear to auscultation, no use of accessory muscles, no crackles or wheezes. Skin: No jaundice. No rashes. Abdomen: Normal bowel sounds, abdomen soft and nontender. Genito Urinary: Genital exam not performed since complaints not related. Rectal: Rectal exam not performed since no symptoms indicated blood loss. Extremities: No cyanosis or clubbing. Musculoskeletal: No swollen or erythematous joints. Neurological: Moves all 4 extremities. No myoclonus. Data 10/15/23 20:00 10/15/23 20:00 A&P Assessment and plan (1) Syncope: High risk for cardiac syncope given personal medical history ICD interrogation report reportedly negative for ED provider Continuous telemetry monitoring Echo to look for regional wall motion abnormalities Monitor electrolytes Check TSH Fall precautions Supportive care Qualifiers: Syncope type: unspecified Qualified Code(s): R55 - Syncope and collapse (2) Subtherapeutic international normalized ratio (INR): Subtherapeutic INR of 1.19 Lovenox bridging Continue warfarin Daily INR checks (3) Abnormal findings on diagnostic imaging of skull and head, not elsewhere classified: Head CT with focal hypodensity in the right basal ganglia, suspect incidental finding Serial neurological exams Consider additional imaging as outpatient (4) Atherosclerotic heart disease [place] coronary artery w/angina pectoris: Continue aspirin Continue statin Qualifiers: [place] vs. transplanted heart: [place] heart Qualified Code(s): I25.119 - Atherosclerotic heart disease of [place] coronary artery with unspecified angina pectoris (5) LV (left ventricular) mural thrombus: On warfarin, currently use with subtherapeutic INR Bridging with Lovenox until INR therapeutic Continue warfarin Daily INR for now (6) Congestive heart failure: Chronic heart failure with reduced ejection fraction Received IV fluids prior to arrival, monitor for exacerbation Hold Entresto Hold diuretics-Aldactone and torsemide Continue beta-trinh Telemetry monitoring Strict I's and O's Daily weights (7) Hyperlipidemia: Continue statin Qualifiers: Hyperlipidemia type: mixed hyperlipidemia Qualified Code(s): E78.2 - Mixed hyperlipidemia Plan DVT prophylaxis: Lovenox/warfarin Attestations Medical Necessity Statement*: Patient presents with syncope with multiple risk factors for cardiac syncope with expected hospitalization to cross 2 midnights for which she is admitted to observation for continuous telemetry monitoring, serial labs, echocardiogram and supportive care. Coding Level of Care Code Acute Code for [facility] Diagnoses Syncope R55 Syncope type: unspecified Subtherapeutic international normalized ratio (INR) R79.1 Abnormal findings on diagnostic imaging of skull and head, not elsewhere classified R93.0 Atherosclerosis of [place] coronary artery of [place] heart with angina pectoris I25.119 [place] vs. transplanted heart: [place] heart LV (left ventricular) mural thrombus I51.3 Congestive heart failure I50.9 Mixed hyperlipidemia E78.2 Hyperlipidemia type: mixed hyperlipidemia
[2023-10-15] MEDS: enoxaparin 100 mg/mL Syringe SUBCUT (22:59)
[2023-10-16] VITALS (9 sets, daily range): BP systolic 81–129; BP diastolic 62–84; PULSE 72–86; RESP 17–26; TEMP 36.6–36.9; O2SAT 93–96
[2023-10-16 00:10] LABS: Thyroid Stimulating Hormone 2.32 uIU/mL (0.27-4.20)
--- NOTE | 2023-10-16 03:03 | ECG_ITS ---
[facility] Test Date: 2023-10-16 Pat Name: Jaime Daugherty Department: Room: 111 Gender: Male Material Stress Tester: : 1960 Requested By: Santos Manley Order Number: [id number] Shade MD: West Wylie M.D. Measurements Intervals [place] Rate: 83 P: 61 ND: 162 QRS: -75 QRSD: 100 T: 101 QT: 365 QTc: 431 Interpretive Statements SINUS RHYTHM POSSIBLE LEFT ATRIAL ENLARGEMENT [-0.1mV P-WAVE IN V1/V2] LOW QRS VOLTAGE IN PRECORDIAL LEADS [QRS DEFLECTION < 1.0 mV IN CHEST LEADS] LEFT ANTERIOR FASCICULAR BLOCK [QRS AXIS <= -45, QR IN I, RS IN II] ANTEROSEPTAL MYOCARDIAL INFARCTION , PROBABLY OLD [40+ ms Q WAVE IN V1-V4] Compared to ECG 10/15/2023 22:16:48 No significant changes Electronically Signed On 10-16-2023 14:16:26 CDT by West Wylie M.D. [id number]
[2023-10-16 03:18] LABS: Basophils % 0.5 %; Eosinophils # 0.1 10^3/uL (0.0-0.8); Eosinophils % 2.1 %; Hematocrit 51.7 % (37-53); Lymphocytes # 1.8 10^3/uL (0.8-4.8); Lymphocytes % 29.8 %; Mean Corpuscular HGB Conc 32.9 g/dL (30-55); Mean Corpuscular Hemoglobin 30.1 pg (27-33); Mean Corpuscular Volume 91.7 fl (82-101); Mean Platelet Volume 10.3 fL (7.4-10.4); Monocytes # 0.8 10^3/uL (0.2-0.9); Monocytes % 12.5 %; Neutrophils # 3.32 10^3/uL (1.8-7.7); Neutrophils % 54.6 %; Nucleated Red Blood Cells % 0 %; Platelet Count 153 10^3/cmm (157-399); Red Blood Count 5.64 10^6/uL (3.85-5.65); Red Cell Distribution Width 13.9 % (12.1-15.1); White Blood Count 6.08 10^3/uL (3.29-11.43)
[2023-10-16 03:27] LABS: Troponin 5 6HR 10.15 ng/L (0-15)
[2023-10-16 03:30] LABS: Blood Urea Nitrogen 19 mg/dL (8-23); Carbon Dioxide 20 mmol/L (22-29); Chloride 101 mmol/L (98-107); Creatinine Clr Calc Pharmacy 92.2073; Glomerular Filtration Rate 75.7 mL/min (90-130); Glucose 101 mg/dL (65-115); Magnesium 2.1 mg/dL (1.7-2.3); Osmolality Calculated 284 mOsm/kg (285-295); Phosphorus 2.5 mg/dL (2.5-4.5); Sodium 136 mmol/L (136-145); Troponin 5 6HR Delta -2.85 ng/L (0-12)
[2023-10-16 03:32] LABS: Anion Gap 19.5 (5-19); Potassium 4.5 mmol/L (3.5-5.1)
[2023-10-16 09:19] LABS: INR 1.06 (0.8-1.2)
[2023-10-16 09:29] LABS: D Dimer 0.61 ug/mLFEU (0-0.59)
--- NOTE | 2023-10-16 09:30 | USCV_ITS ---
Jaime Daugherty Age: 63 Gender: M : 1960 Exam Date: 10/16/2023 09:55 Ordering Phys: Velasquez Velez MD Technologist: [place] [facility] [place]: hx of cad mi BP: 81 / 62 HR: 96 Rhythm: Sinus Technical Quality: Adequate MEASUREMENTS (Male / Female) Normal Values 2D ECHO LV Diastolic Diameter PLAX 5.4 cm 4.2 - 5.9 / 3.9 - 5.3 cm IVS Diastolic Thickness 1.3 cm 0.6 - 1.0 / 0.6 - 0.9 cm IVS Systolic Thickness 1.9 cm LVPW Diastolic Thickness 1.2 cm 0.6 - 1.0 / 0.6 - 0.9 cm LVPW Systolic Thickness 1.7 cm LVOT Diameter 2.1 cm LV Ejection Fraction 2D Teich 69.2 % LV Ejection Fraction MOD 4C 34.8 % LV Ejection Fraction MOD 2C 50.3 % LV Ejection Fraction 2C AL 51.8 % LA Diameter 3.1 cm Aorta at Sinotubular Diameter 3.3 cm IVC Diameter 1.0 cm M-MODE LA Ao Ratio MM 1.0 AV Cusp Separation MM 3.1 cm DOPPLER AV Peak Velocity 107.0 cm/s LVOT Peak Velocity 82.0 cm/s AV Area Cont Eq vti 3.1 cm squared AV Area Cont Eq pk 2.6 cm squared MV Peak Velocity 106.0 cm/s MV Area PHT 5.3 cm squared Mitral E to A Ratio 0.5 TR Peak Velocity 291.0 cm/s TR Peak Gradient 33.9 mmHg TV Peak E Velocity 81.0 cm/s Right Atrial Pressure 3.0 mmHg Pulmonary Artery Systolic Pressu 36.9 mmHg PV Peak Velocity 75.0 cm/s FINDINGS Left Ventricle Left ventricular is normal in size. LV systolic function is moderate to severely reduced with EF of 30 to 35%. Severe hypokinesis to akinesis of apical wall. Left ventricular hypertrophy. Grade 1 diastolic dysfunction Right Ventricle Normal in size and function Right Atrium Normal in size Left Atrium Normal in size Mitral Valve Structurally normal mitral valve. Trace mitral regurgitation Aortic Valve Structurally normal aortic valve. No significant stenosis or regurgitation. Tricuspid Valve Mild tricuspid regurgitation. Insufficient TR jet to left RVSP. Pulmonic Valve Not well visualized Pericardium Normal Aorta Normal in size IVC Appears to be normal CONCLUSIONS LV systolic function is moderate to severely reduced with EF of 30 to 35%. Left ventricular hypertrophy Grade 1 diastolic dysfunction. Trace mitral regurgitation Mild tricuspid regurgitation Compared to prior echocardiogram from 2021, no significant changes are seen Hieu Roy MD (Electronically Signed) Final Date: 16 October 2023 17:54 S
[2023-10-16] MEDS: aspirin 81 mg EC Tablet PO (10:20)
[2023-10-16] MEDS: metoprolol succinate ER (24 HR) 25 mg Tablet 12.5 MG PO (10:21)
[2023-10-16] MEDS: atorvastatin 40 mg Tablet PO (10:21)
[2023-10-16] MEDS: enoxaparin 100 mg/mL Syringe SUBCUT (10:21)
[2023-10-16] MEDS: sodium chloride 0.9% 500 ML 125 ML IV (10:22)
--- NOTE | 2023-10-16 11:54 | PM.DCS ---
Discharge Providers Date of Admission: 10/15/23 22:43 Date of Discharge: October 16, 2023 Attending Provider at Admission: Velasquez Velez MD Attending Provider at Discharge: Callie Koch MD Primary Care Provider: SHEILA Shetty Diagnoses at Discharge Discharge Diagnosis (1) Syncope: Status: Acute Qualifiers: Syncope type: unspecified Qualified Code(s): R55 - Syncope and collapse (2) Subtherapeutic international normalized ratio (INR): Status: Acute (3) Abnormal findings on diagnostic imaging of skull and head, not elsewhere classified: Status: Acute (4) Atherosclerotic heart disease [place] coronary artery w/angina pectoris: Status: Acute Qualifiers: [place] vs. transplanted heart: [place] heart Qualified Code(s): I25.119 - Atherosclerotic heart disease of [place] coronary artery with unspecified angina pectoris (5) LV (left ventricular) mural thrombus: Status: Acute (6) Congestive heart failure: Status: Acute (7) Hyperlipidemia: Status: Acute Qualifiers: Hyperlipidemia type: mixed hyperlipidemia Qualified Code(s): E78.2 - Mixed hyperlipidemia Reason for Visit Reason for Visit: near syncope Hospital Course Hospital Course 63-year-old male who was admitted for management evaluation of syncope patient has a history of AICD placement secondary to reduced ejection fraction heart failure, D-dimer was unremarkable to warrant CTA chest, patient remained in sinus rhythm, EKG did not show any ischemic or infarctive changes, patient was orthostatic positive, he was given gentle fluid hydration, pacemaker/AICD interrogation is unremarkable. No active chest pain. Focal hypodensity rhizomelia ganglia related to age-indeterminate infarct no focal deficit noted on examination. Patient clinically is dehydrated. Hemodynamically stable. Doing well on room air. He will be discharged after IV fluid hydration. I will ask patient to hold off on antihypertensive regimen for now Physical Exam Narrative: Awake and alert Sinus rhythm Currently on room air Hemodynamic stable Discharge Data Studies Completed and Pending Completed Studies During Hospitalization Category Date Time Status CT head wo con* [id number] Stat Cat Scan 10/15/23 20:20 Completed Pending at discharge Category Date Time Status Prothrombin Time INR AM LABS Lab 10/17/23 04:00 Ordered Prothrombin Time INR AM LABS Lab 10/18/23 04:00 Ordered Prothrombin Time INR AM LABS Lab 10/19/23 04:00 Ordered CV. echo complete* [id number] Routine Ultrasound 10/16/23 09:30 Taken Radiology Impressions Head CT 10/15/23 20:20 IMPRESSION: Focal hypodensity within the right basal ganglia (series 3, image 28) may represent an age-indeterminate infarct. No acute intracranial hemorrhage. COMMENT: THIS REPORT CONTAINS FINDINGS THAT MAY BE CRITICAL TO PATIENT CARE. The exam findings were verbally communicated by me to RICH MONTIEL via telephone conference at 9:55 PM CDT on 10/15/2023. The findings were acknowledged and understood. Laboratory Results WBC 6.08 10^3/uL (3.29-11.43) 10/16/23 02:07 RBC 5.64 10^6/uL (3.85-5.65) 10/16/23 02:07 Hgb 17.00 g/dL (11.27-16.99) H 10/16/23 02:07 Hct 51.7 % (37-53) 10/16/23 02:07 MCV 91.7 fl (82-101) 10/16/23 02:07 MCH 30.1 pg (27-33) 10/16/23 02:07 MCHC 32.9 g/dL (30-55) 10/16/23 02:07 RDW 13.9 % (12.1-15.1) 10/16/23 02:07 Plt Count 153 10^3/cmm (157-399) L 10/16/23 02:07 MPV 10.3 fL (7.4-10.4) 10/16/23 02:07 Neut % (Auto) 54.6 % 10/16/23 02:07 Lymph % (Auto) 29.8 % 10/16/23 02:07 [place] % (Auto) 12.5 % 10/16/23 02:07 Eos % (Auto) 2.1 % 10/16/23 02:07 Baso % (Auto) 0.5 % 10/16/23 02:07 Neut # (Auto) 3.32 10^3/uL (1.8-7.7) 10/16/23 02:07 Lymph # (Auto) 1.8 10^3/uL (0.8-4.8) 10/16/23 02:07 [place] # (Auto) 0.8 10^3/uL (0.2-0.9) 10/16/23 02:07 Eos # (Auto) 0.1 10^3/uL (0.0-0.8) 10/16/23 02:07 Baso # (Auto) 0.0 10^3/uL (0.0-0.1) 10/16/23 02:07 Nucleated RBC % (auto) 0 % 10/16/23 02:07 Nucleated RBCs # 0.0 /100WBC 10/16/23 02:07 PT 14.20 SECONDS (12.1-14.9) 10/16/23 08:40 INR 1.06 (0.8-1.2) 10/16/23 08:40 D-Dimer 0.61 ug/mLFEU (0-0.59) H 10/16/23 08:40 Sodium 136 mmol/L (136-145) 10/16/23 02:07 Potassium 4.5 mmol/L (3.5-5.1) 10/16/23 02:07 Chloride 101 mmol/L (98-107) 10/16/23 02:07 Carbon Dioxide 20 mmol/L (22-29) L 10/16/23 02:07 Anion Gap 19.5 (5-19) H 10/16/23 02:07 BUN 19 mg/dL (8-23) 10/16/23 02:07 Creatinine 1.0 mg/dL (0.7-1.2) 10/16/23 02:07 GFR Calculation 75.7 mL/min (90-130) L 10/16/23 02:07 Glucose 101 mg/dL (65-115) 10/16/23 02:07 POC Glucose 107 mg/dL (70-110) 10/15/23 19:48 Calculated Osmolality 284 mOsm/kg (285-295) L 10/16/23 02:07 Calcium 8.0 mg/dL (8.5-10.5) L 10/16/23 02:07 Phosphorus 2.5 mg/dL (2.5-4.5) 10/16/23 02:07 Magnesium 2.1 mg/dL (1.7-2.3) 10/16/23 02:07 Total Bilirubin 0.2 mg/dL (0.15-1.2) 10/15/23 20:00 AST 27 U/L (0-40) 10/15/23 20:00 ALT 26 U/L (0-41) 10/15/23 20:00 Alkaline Phosphatase 89 U/L (40-130) 10/15/23 20:00 Troponin T Baseline 13 ng/L (0-15) 10/15/23 20:00 Troponin T 120 Minute 8.14 ng/L (0-15) 10/15/23 22:18 Delta Troponin T -4.86 ABS# (0-10) L 10/15/23 22:18 Troponin T Hi Sens 6Hr 10.15 ng/L (0-15) 10/16/23 02:07 Troponin T Hi Sens 6Hr Delta -2.85 ng/L (0-12) L 10/16/23 02:07 Total Protein 5.6 g/dL (6.6-8.7) L 10/15/23 20:00 Albumin 3.5 g/dL (3.5-5.2) 10/15/23 20:00 Globulin 2.1 g/dL (1.3-4.6) 10/15/23 20:00 TSH 2.32 uIU/mL (0.27-4.20) 10/15/23 20:00 Vitals Last Vital Signs Temp 98.0 F 10/16/23 08:00 Pulse 77 10/16/23 08:00 Resp 18 10/16/23 08:00 BP 114/81 10/16/23 08:14 Pulse Ox 93 10/16/23 08:00 O2 Del Method Room Air 10/16/23 04:00 Discharge Plan Discharge Patient Disposition: Home Condition: Stable Prescriptions: Continued aspirin 81 mg tablet,delayed release (DR/EC) 81 mg PO DAILY warfarin 1 mg tablet See Rx Instructions .ROUTE .COMPLEX Qty: 30 0RF Dose Instruction: TAKE 1 TABLET BY MOUTH ON TUESDAYS AND THURSDAYS WITH 6 MG TABLET Rx Instructions: TAKE 1 TABLET BY MOUTH ON TUESDAYS AND THURSDAYS WITH 6 MG TABLET atorvastatin 40 mg tablet 40 mg PO DAILY Qty: 90 1RF warfarin 6 mg tablet 6 mg PO DIRECTED Qty: 90 3RF Rx Instructions: Take 1 tab daily every night Held Entresto 97-103 mg tablet 1 tab PO BID Qty: 180 1RF Hold Instructions: Resume on 10/18/23. metoprolol succinate 25 mg tablet extended release 24 hr 12.5 mg PO DAILY Hold Instructions: Resume on 10/18/23. Discharge Orders: Discharge Order (Routine); Ordered 10/16/23 Ordered By: Callie Koch Referrals: Sol De Oliveira FNP [Primary Care Provider] - Patient Instructions: Opioid Safety Activity Restrictions/Additional Instructions: Please resume your Entresto and metoprolol on Monday hold off until then Discharge Attestations Time Spent in Discharge Care*: greater than 30 min Quality Metrics Clinical Quality Measures [ No reported AMI, CVA or VTE this stay] Coding Level of Care Code Acute Code for Chg Fwd Diagnoses Syncope R55 Syncope type: unspecified Subtherapeutic international normalized ratio (INR) R79.1 Abnormal findings on diagnostic imaging of skull and head, not elsewhere classified R93.0 Atherosclerosis of [place] coronary artery of [place] heart with angina pectoris I25.119 [place] vs. transplanted heart: [place] heart LV (left ventricular) mural thrombus I51.3 Congestive heart failure I50.9 Mixed hyperlipidemia E78.2 Hyperlipidemia type: mixed hyperlipidemia
[2023-10-16] MEDS: warfarin 3 mg Tablet 6 MG PO (15:00)
--- NOTE | 2023-10-16 15:16 | PC.NURSE ---
notified dr faulkner pt's orthostatic VS after 500 ml fluids infused for 5 hrs. BP laying-110/77, sitting-91/69, standing-71/55. pt denies any dizziness, lightheadedness, pain or discomfort or shortness of breath. Had 9 beat run of vtach. informed dr manriquez via telephone, received order to give 250 ml of bolus.
[2023-10-16] MEDS: sodium chloride 0.9% 250 ML IV (15:32)
--- NOTE | 2023-10-16 16:47 | PC.NURSE ---
Orthostatic BP recheck infused 250 ml bolus as ordered. notified dr manriquez of the following vs. okay to DC patient as ordered. Laying-115/87 sitting-94/74 standing-98/75
--- NOTE | 2023-10-16 16:52 | PC.NURSE ---
home med notified dr manriquez that pt stated he has been taking coumadin 6 mg every night. informed him to review home meds upon discharge.
== END 2023-10-16 17:25 | disposition home or self-care (01) ==
LOC: ER 22:38 → CSU 22:43
PROVIDERS: Admitting Provider Internal Medicine; Emergency Provider Student in an Organized Health Care Education/Training Program; PCP Nurse Practitioner Family; Visit Provider Internal Medicine
DX: R55 Syncope and collapse (principal); R79.1 Abnormal coagulation profile; R93.0 Abnormal findings on diagnostic imaging of skull and head, not elsewhere classified; I25.119 Atherosclerotic heart disease of native coronary artery with unspecified angina pectoris; I51.3 Intracardiac thrombosis, not elsewhere classified; E78.2 Mixed hyperlipidemia; I25.2 Old myocardial infarction; I25.5 Ischemic cardiomyopathy; I11.0 Hypertensive heart disease with heart failure; I50.20 Unspecified systolic (congestive) heart failure; Z79.01 Long term (current) use of anticoagulants; J44.9 Chronic obstructive pulmonary disease, unspecified; E78.5 Hyperlipidemia, unspecified; Z79.82 Long term (current) use of aspirin; F17.200 Nicotine dependence, unspecified, uncomplicated; I95.9 Hypotension, unspecified
CPT/HCPCS: 36415; 36416; 70450; 80048; 80053; 82962; 83735; 84100; 84443; 84484; 85025; 85378; 85610; 93005; 93306; 96372; 99285; G0378; J1650; J7040; J7050; J7120

== ENCOUNTER → 2023-10-19 09:22 | Outpatient (BNVA) | payer MEDICAID, SELFPAY | PROVIDERS: PCP Nurse Practitioner Family; Visit Provider Nurse Practitioner Family | DX: Z51.81 Encounter for therapeutic drug level monitoring (principal); Z79.01 Long term (current) use of anticoagulants | CPT/HCPCS: 85610 ==

== ENCOUNTER → 2023-10-25 09:58 | Outpatient (BNVA) | payer MEDICAID, SELFPAY | PROVIDERS: PCP Nurse Practitioner Family; Visit Provider Nurse Practitioner Family | DX: Z79.01 Long term (current) use of anticoagulants (principal); I50.22 Chronic systolic (congestive) heart failure | CPT/HCPCS: 85610 ==

== ENCOUNTER → 2023-11-23 09:40 | Outpatient (BNVA) | payer MEDICAID, SELFPAY | PROVIDERS: PCP Nurse Practitioner Family; Visit Provider Nurse Practitioner Family | DX: Z79.01 Long term (current) use of anticoagulants (principal) | CPT/HCPCS: 85610 ==

== ENCOUNTER → 2023-12-11 11:10 | Outpatient (BNVA) | payer MEDICAID, SELFPAY | PROVIDERS: PCP Nurse Practitioner Family; Visit Provider Nurse Practitioner Family | DX: I48.91 Unspecified atrial fibrillation (principal) | CPT/HCPCS: 85610 ==

== ENCOUNTER 2023-12-21 08:34 | Outpatient (CLI) | payer MEDICAID, SELFPAY ==
[2023-12-21 09:15] LABS: INR 1.48 (0.8-1.2)
== END 2023-12-21 08:35 | disposition home or self-care (01) ==
LOC: LAB 08:36
PROVIDERS: PCP Nurse Practitioner Family; Visit Provider Internal Medicine Cardiovascular Disease
DX: Z79.01 Long term (current) use of anticoagulants (principal)
CPT/HCPCS: 36415; 85610

== ENCOUNTER 2024-01-06 21:10 | Observation (INO) | payer MEDICAID, SELFPAY ==
[2024-01-06 21:14] VITALS: BMI 25.1
--- NOTE | 2024-01-06 21:14 | ECG_ITS ---
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 Measurements Intervals [place] Rate: 86 P: 25 NE: 136 QRS: 246 QRSD: 93 T: 102 QT: 358 QTc: 430 Interpretive Statements SINUS RHYTHM INDETERMINATE AXIS LOW QRS VOLTAGE IN PRECORDIAL LEADS [QRS DEFLECTION < 1.0 mV IN CHEST LEADS] ANTEROSEPTAL MYOCARDIAL INFARCTION , OF INDETERMINATE AGE [40+ ms Q WAVE IN V1-V4] Compared to ECG 10/16/2023 03:03:11 Indeterminate axis now present Left anterior fascicular block no longer present Myocardial infarct finding still present Electronically Signed On 01-08-2024 00:12:55 CDT by Soheila Porter M.D. [email or web address]
[2024-01-06] MEDS: sodium chloride 0.9% 1,000 ML 999 ML IV (21:18)
--- NOTE | 2024-01-06 21:20 | CTR_ITS ---
PROCEDURE INFORMATION: Exam: CT Head Without Contrast Exam date and time: 01/06/2024 9:36 PM Age: 63 years old Clinical indication: Syncope and collapse; Patient HX: Syncopal episode. Hypotensive. TECHNIQUE: Imaging protocol: Computed tomography of the head without contrast. Radiation optimization: All CT scans at this facility use at least one of these dose optimization techniques: automated exposure control; mA and/or kV adjustment per patient size (includes targeted exams where dose is matched to clinical indication); or iterative reconstruction. COMPARISON: CT head wo con* [id number] 10/15/2023 8:51 PM RADIATION DOSE METRICS: Total DLP (mGy-cm): 1089.58 FINDINGS: Brain: Similar likely old lacunar infarct in the right basal ganglia. No hemorrhage. Unremarkable white matter. No mass effect. Cerebral ventricles: No ventriculomegaly. Paranasal sinuses: Visualized sinuses are unremarkable. No fluid levels. Mastoid air cells: Visualized mastoid air cells are well aerated. Bones: Unremarkable. No acute fracture. Soft tissues: Unremarkable. Vasculature: Mild vascular calcifications along the carotid siphons. CT/CT head wo con* [id number] IMPRESSION: No acute intracranial abnormality.
--- NOTE | 2024-01-06 21:20 | XRR_ITS ---
PROCEDURE INFORMATION: Exam: XR Chest Exam date and time: 01/06/2024 9:32 PM Age: 63 years old Clinical indication: Prior surgery; Surgery date: 6+ months; Surgery type: Pacemaker; Patient HX: Wheezing; Weakness; Syncopal episode; Cough; Recent covid & flu shot TECHNIQUE: Imaging protocol: Radiologic exam of the chest. Views: 2 views. COMPARISON: No relevant prior studies available. FINDINGS: Tubes, catheters and devices: Left subclavian AICD with right atrial appendage and right ventricular leads. Lungs: Prominent pericardial fat pad in the left lower lobe. No focal consolidation. Pleural spaces: Unremarkable. No pleural effusion. No pneumothorax. Heart/Mediastinum: Heart appears prominent, though accentuated by low lung volumes and portable technique. Bones/joints: Mild degenerative changes of the thoracic spine. XR/XR chest 2V* [id number] IMPRESSION: No acute findings.
[2024-01-06 21:23] LABS: Basophils % 0.4 %; Hematocrit 46.6 % (37-53); Lymphocytes # 1.7 10^3/uL (0.8-4.8); Lymphocytes % 17.5 %; Mean Corpuscular HGB Conc 32.6 g/dL (30-55); Mean Corpuscular Hemoglobin 29.6 pg (27-33); Mean Corpuscular Volume 90.7 fl (82-101); Mean Platelet Volume 9.4 fL (7.4-10.4); Monocytes # 1.4 10^3/uL (0.2-0.9); Monocytes % 13.7 %; Neutrophils # 6.74 10^3/uL (1.8-7.7); Neutrophils % 67.9 %; Nucleated Red Blood Cells % 0 %; Platelet Count 197 10^3/cmm (157-399); Red Blood Count 5.14 10^6/uL (3.85-5.65); Red Cell Distribution Width 14.1 % (12.1-15.1); White Blood Count 9.93 10^3/uL (3.29-11.43)
[2024-01-06 21:38] LABS: INR 1.58 (0.8-1.2)
[2024-01-06 21:43] LABS: Troponin(5th) Baseline 17 ng/L (0-15)
[2024-01-06 21:47] VITALS: BP 91/65; PULSE 81; RESP 18; O2SAT 96
[2024-01-06 21:49] LABS: Alanine Aminotransferase 23 U/L (0-41); Albumin Level 3.6 g/dL (3.5-5.2); Alkaline Phosphatase 91 U/L (40-130); Anion Gap 16.2 (5-19); Aspartate Amino Transferase 30 U/L (0-40); Blood Urea Nitrogen 19 mg/dL (8-23); Calcium 7.6 mg/dL (8.5-10.5); Carbon Dioxide 22 mmol/L (22-29); Chloride 96 mmol/L (98-107); Creatinine Clr Calc Pharmacy 64.8657; Globulin 2.7 g/dL (1.3-4.6); Glomerular Filtration Rate 55.9 mL/min (90-130); Glucose 123 mg/dL (65-115); Osmolality Calculated 274 mOsm/kg (285-295); Potassium 4.2 mmol/L (3.5-5.1); Sodium 130 mmol/L (136-145); Total Bilirubin 0.6 mg/dL (0.15-1.2); Total Protein 6.3 g/dL (6.6-8.7)
[2024-01-06 22:17] VITALS: BP 99/70; PULSE 81; RESP 18; O2SAT 95
[2024-01-06 22:30] VITALS: BP 95/66; PULSE 78; RESP 12; O2SAT 97
--- NOTE | 2024-01-06 22:31 | ED_ITS ---
Documented by User: SABIHA Piersno 01/07/24 01:06 HPI - Syncope 2 General: Chief Complaint: Syncope Stated Complaint: syncope Time Seen by Provider: 01/06/24 21:20 History of Present Illness: Mr. Daugherty is a 63-year-old man that presents to the emergency department with complaints of syncope and diaphoresis. Patient states that he had an obstructing renal stone that this week he underwent a lithotripsy and stent placement for. Patient states that he was doing fairly well until Monday when he underwent a influenza COVID vaccine. Patient states he developed body aches Monday worsening body aches and feeling poorly and then today syncope. Patient has a significant medical history of CAD, hypertension, hyperlipidemia, CHF, EF of 10 to 20%. Patient also has COPD, intermittent hypertension. Upon arrival in the emergency department he was hypertensive in the high 80s to low 90s. Associated symptoms: Deny chest pain, headache(s) or lightheadedness Related Data Home Medications Medication Instructions Recorded Confirmed aspirin 81 mg tablet,delayed 81 mg PO DAILY 11/30/20 01/07/24 release warfarin 6 mg tablet 6 mg PO BEDTIME 10/16/23 01/07/24 Previous Rx's Medication Instructions Recorded atorvastatin 40 mg tablet See Rx Instructions .Route 11/22/23 .COMPLEX #90 tabs sacubitril 97 mg-valsartan 103 mg 1 tab PO BID #180 tabs 12/28/23 tablet (Entresto) Allergies Allergy/AdvReac Type Severity Reaction Status Date / Time No Known Allergies Allergy Verified 10/25/23 09:30 Review of Systems 2 General: Reports: 10 or more systems reviewed and unremarkable except in HPI and below Const: Reports: change in weight Eyes: Denies: change in vision ENMT: Denies: disequilibrium Card: Reports: syncope; Denies: chest pain, palpitations, irregular heart rhythm, swelling of feet/ankles, lightheadedness, pre-syncope or dyspnea on exertion Resp: Denies: dyspnea, productive cough or non-productive cough GI: Denies: hematochezia : Denies: hematuria Musc: Denies: neck pain, back pain, joint pain, muscle cramps or muscle weakness Neuro: Denies: headache(s) or dizziness Psych: Denies: anxiety or depression Endo: Denies: tired all the time [place]/Lymph: Denies: easy bruising or easy bleeding PFSH ED 2 PFSH: Medical History Occlusion of LAD (left anterior descending) artery Cardiac LV ejection fraction 10-20% Dilated cardiomyopathy Amphetamine use disorder, moderate Smoking Severe sepsis Abnormal findings on diagnostic imaging of skull and head, not elsewhere classified Subtherapeutic international normalized ratio (INR) Acute hypotension Congestive heart failure Syncope Hyperlipidemia LV (left ventricular) mural thrombus Atherosclerotic heart disease [place] coronary artery w/angina pectoris Myocardial infarction Atherosclerosis CAD (coronary artery disease) Hypertension Heart failure, left, with LVEF <=30% Anemia COPD (chronic obstructive pulmonary disease) LV (left ventricular) mural thrombus Ischemic cardiomyopathy Bronchitis Surgical History History of ankle surgery History of implantable cardioverter-defibrillator (ICD) placement Family History Father CAD (coronary artery disease) Diabetes Mother Hypertension Sister Cancer Family/Other Stroke Grandfather Stroke Denies family history of Clotting disorder Dementia Chronic kidney disease (CKD) Suicide Anesthesia complication Bleeding disorder Lung disease Social History Smoking and tobacco/nicotine status: current every day tobacco/nicotine user Alcohol intake: current Substance/Drug Use: former Date of last use: amphetamines Physical Exam 2 Const: COMMON NORMALS: no acute distress, average body habitus, alert and well nourished GENERAL APPEARANCE: cooperative ORIENTATION/CONSCIOUSNESS: Yes awake OTHER: Chronically ill-appearing 63-year-old male. Calm but diaphoretic having HENMT: COMMON NORMALS: normocephalic and atraumatic HEAD & SCALP: n ormocephalic and atraumatic Eye: COMMON NORMALS: conjunctivae normal CONJUNCTIVA: Yes conjunctivae normal Neck/C-Spine: GENERAL: Yes normal visual inspection Resp: COMMON NORMALS: normal respiratory effort, No retractions and No use of accessory muscles Cardio: COMMON NORMALS: regular rhythm and Peripheral pulses 2+ throughout RHYTHM: regular rhythm PERIPHERAL PULSES: Peripheral pulses 2+ throughout GI: COMMON NORMALS: Soft to palpation and non-tender PALPATION: Yes Soft to palpation Extremity: COMMON NORMALS: full ROM and no pedal edema Neuro: COMMON NORMALS: no focal motor deficits SENSORIUM/ORIENTATION: Yes alert Skin: COMMON NORMALS: no rashes or lesions noted GENERAL SKIN EXAM: no rashes or lesions noted Course 2 Vital Signs: Vital signs: Vital Signs Temperature 97.5 F L 01/07/24 05:35 Pulse Rate 69 01/07/24 05:35 Respiratory Rate 19 H 01/07/24 05:35 Blood Pressure 100/69 01/07/24 05:35 Pulse Oximetry 99 01/07/24 05:35 Oxygen Delivery Me thod Room Air 01/07/24 05:35 Oxygen Flow Rate 2 01/07/24 00:30 MDM - Syncope Medical Decision Making Patient is a 63-year-old man with internal defibrillator that presents with syncope. He denies chest pain shortness of breath cough congestion abdominal pain nausea vomiting or diarrhea. Denies fever or chills. He has had a complicated course the last 10 days or so. He had an obstructing kidney stone and underwent lithotripsy and stent placement 4. Neck The patient then underwent influenza and COVID vaccines. He quickly developed flulike symptoms. Today he was standing in the kitchen and had a syncopal episode. It was witnessed by his . He denies striking his head but has bruising to the left cheek. Patient underwent evaluation for syncope. CT head revealed no acute intracranial abnormality. Chest x-ray reveals no cardio pulmonary abnormality at this time. Laboratory studies reveals no leukocytosis, anemias. CMP reveals hyponatremia, elevated creatinine. Lactic acid was within normal limits. Troponin initial was 17 with a 2-hour delta of -1.7. Discussed the case with Dr. Larson. Patient's heart score is a 5. He advises observation. Spoke with the hospitalist who is advising interrogation of his defibrillator. Patient has a history be, ischemic cardiomyopathy, arrhythmias. Hospitalist believes he can likely be managed at home. Internal pacemaker defibrillator interrogated. No evidence of cardiac events this evening. Last event was on 01/05/24. I did speak with Dr. Velez again. Patient was admitted for similar episode approximately [address] Velez is asking for urinalysis. Probably on too much Entresto and that is what is making him hypotensive at times. At this time, I will be transitioning care to Dr. Larson. Lab Data 01/06/24 21:17 01/06/24 21:17 Radiology Impressions Chest X-Ray 01/06/24 21:20 IMPRESSION: No acute findings. Head CT 01/06/24 21:20 IMPRESSION: No acute intracranial abnormality. Laboratory Results WBC 9.93 10^3/uL (3.29-11.43) 01/06/24 21:17 RBC 5.14 10^6/uL (3.85-5.65) 01/06/24 21:17 Hgb 15.20 g/dL (11.27-16.99) 01/06/24 21:17 Hct 46.6 % (37-53) 01/06/24 21:17 MCV 90.7 fl (82-101) 01/06/24 21:17 MCH 29.6 pg (27-33) 01/06/24 21:17 MCHC 32.6 g/dL (30-55) 01/06/24 21:17 RDW 14.1 % (12.1-15.1) 01/06/24 21:17 Plt Count 197 10^3/cmm (157-399) 01/06/24 21:17 MPV 9.4 fL (7.4-10.4) 01/06/24 21:17 Neut % (Auto) 67.9 % 01/06/24 21:17 Lymph % (Auto) 17.5 % 01/06/24 21:17 Schle[place] % (Auto) 13.7 % 01/06/24 21:17 Eos % (Auto) 0.0 % 01/06/24 21:17 Baso % (Auto) 0.4 % 01/06/24 21:17 Neut # (Auto) 6.74 10^3/uL (1.8-7.7) 01/06/24 21:17 Lymph # (Auto) 1.7 10^3/uL (0.8-4.8) 01/06/24 21:17 [place] # (Auto) 1.4 10^3/uL (0.2-0.9) H 01/06/24 21:17 Eos # (Auto) 0.0 10^3/uL (0.0-0.8) 01/06/24 21:17 Baso # (Auto) 0.0 10^3/uL (0.0-0.1) 01/06/24 21:17 Nucleated RBC % (auto) 0 % 01/06/24 21:17 Nucleated RBCs # 0.0 /100WBC 01/06/24 21:17 PT 19.40 SECONDS (12.1-14.9) H 01/06/24 21:17 INR 1.58 (0.8-1.2) H 01/06/24 21:17 Sodium 130 mmol/L (136-145) L 01/06/24 21:17 Potassium 4.2 mmol/L (3.5-5.1) 01/06/24 21:17 Chloride 96 mmol/L (98-107) L 01/06/24 21:17 Carbon Dioxide 22 mmol/L (22-29) 01/06/24 21:17 Anion Gap 16.2 (5-19) 01/06/24 21:17 BUN 19 mg/dL (8-23) 01/06/24 21:17 Creatinine 1.3 mg/dL (0.7-1.2) H 01/06/24 21:17 GFR Calculation 55.9 mL/min (90-130) L 01/06/24 21:17 Glucose 123 mg/dL (65-115) H 01/06/24 21:17 Calculated Osmolality 274 mOsm/kg (285-295) L 01/06/24 21:17 Lactic Acid 2.0 mmol/L (0.5-2.2) 01/06/24 21:17 Calcium 7.6 mg/dL (8.5-10.5) L 01/06/24 21:17 Total Bilirubin 0.6 mg/dL (0.15-1.2) 01/06/24 21:17 AST 30 U/L (0-40) 01/06/24 21:17 ALT 23 U/L (0-41) 01/06/24 21:17 Alkaline Phosphatase 91 U/L (40-130) 01/06/24 21:17 Troponin T Baseline 17 ng/L (0-15) H 01/06/24 21:17 Troponin T 120 Minute 15.63 ng/L (0-15) H 01/06/24 22:59 Delta Troponin T -1.37 ABS# (0-10) L 01/06/24 22:59 Troponin T Hi Sens 6Hr 10.70 ng/L (0-15) 01/07/24 04:26 Troponin T Hi Sens 6Hr Delta -6.30 ng/L (0-12) L 01/07/24 04:26 Total Protein 6.3 g/dL (6.6-8.7) L 01/06/24 21:17 Albumin 3.6 g/dL (3.5-5.2) 01/06/24 21:17 Globulin 2.7 g/dL (1.3-4.6) 01/06/24 21:17 Urine Color Yellow (Yellow) 01/07/24 03:02 Urine Appearance Cloudy (CLEAR) A 01/07/24 03:02 Urine pH 5.5 (5-7) 01/07/24 03:02 Ur Specific [place] 1.018 (1.005-1.030) 01/07/24 03:02 Urine Protein 1+ (Negative) A 01/07/24 03:02 Urine Glucose (UA) Negative (Normal) 01/07/24 03:02 Urine Ketones Negative (Negative) 01/07/24 03:02 Urine Blood Negative (Negative) 01/07/24 03:02 Urine Nitrate Negative (Negative) 01/07/24 03:02 Urine Bilirubin Negative (Negative) 01/07/24 03:02 Urine Urobilinogen 1.0 mg/dL (Negative) 01/07/24 03:02 Ur Leukocyte Esterase 2+ (Negative) A 01/07/24 03:02 Urine RBC 0-4 /hpf (0-2) H 01/07/24 03:02 Urine WBC >100 /hpf (0-5) H 01/07/24 03:02 Ur Squamous Epith Cells 5-10 /hpf (0-5) H 01/07/24 03:02 Amorphous Sediment Not Reportable 01/07/24 03:02 Urine Bacteria 4+ /hpf (NONE) H 01/07/24 03:02 Coronavirus (PCR) Negative (Negative) 01/06/24 22:42 Influenza A (PCR) Negative (Negative) 01/06/24 22:42 Influenza Type B (PCR) Negative (Negative) 01/06/24 22:42 RSV (PCR) Negative (Negative) 01/06/24 22:42 All radiology interpretation(s) finalized by discharge Clincial Decision Support The following clinical decision support tools were used to aid in care of the patient HEART Score -> Resulting HEART Score: 5. Discharge Plan Discharge Patient Disposition: Admitted As Inpatient Admit Provider: Velasquez Velez Clinical Impression: On anticoagulant therapy, Ischemic cardiomyopathy, Acute hypotension, Orthostatic hypotension Condition: Stable Coding Level of Care Code ED Press Loader for Chg Fwd Documented by User: Horacio Larson DO 01/07/24 06:09 HPI - Syncope 2 General: Chief Complaint: Syncope Stated Complaint: syncope Time Seen by Provider: 01/06/24 21:20 Related Data Home Medications Medication Instructions Recorded Confirmed aspirin 81 mg tablet,delayed 81 mg PO DAILY 11/30/20 01/07/24 release warfarin 6 mg tablet 6 mg PO BEDTIME 10/16/23 01/07/24 Previous Rx's Medication Instructions Recorded atorvastatin 40 mg tablet See Rx Instructions .Route 11/22/23 .COMPLEX #90 tabs sacubitril 97 mg-valsartan 103 mg 1 tab PO BID #180 tabs 12/28/23 tablet (Entresto) Allergies Allergy/AdvReac Type Severity Reaction Status Date / Time No Known Allergies Allergy Verified 10/25/23 09:30 [facility] ED 2 PFSH: Medical History Occlusion of LAD (left anterior descending) artery Cardiac LV ejection fraction 10-20% Dilated cardiomyopathy Amphetamine use disorder, moderate Smoking Severe sepsis Abnormal findings on diagnostic imaging of skull and head, not elsewhere classified Subtherapeutic international normalized ratio (INR) Acute hypotension Congestive heart failure Syncope Hyperlipidemia LV (left ventricular) mural thrombus Atherosclerotic heart disease [place] coronary artery w/[place] pectoris Myocardial infarction Atherosclerosis CAD (coronary artery disease) Hypertension Heart failure, left, with LVEF <=30% Anemia COPD (chronic obstructive pulmonary disease) LV (left ventricular) mural thrombus Ischemic cardiomyopathy Bronchitis Surgical History History of ankle surgery History of implantable cardioverter-defibrillator (ICD) placement Family History Father CAD (coronary artery disease) Diabetes Mother Hypertension Sister Cancer Family/Other Stroke Grandfather Stroke Denies family history of Clotting disorder Dementia Chronic kidney disease (CKD) Suicide Anesthesia complication Bleeding disorder Lung disease Social History Smoking and tobacco/nicotine status: current every day tobacco/nicotine user Alcohol intake: current Substance/Drug Use: former Date of last use: amphetamines Course 2 Vital Signs: Vital signs: Vital Signs Temperature 97.5 F L 01/07/24 05:35 Pulse Rate 69 01/07/24 05:35 Respiratory Rate 19 H 01/07/24 05:35 Blood Pressure 100/69 01/07/24 05:35 Pulse Oximetry 99 01/07/24 05:35 Oxygen Delivery Me thod Room Air 01/07/24 05:35 Oxygen Flow Rate 2 01/07/24 00:30 MDM - Syncope Medical Decision Making Patient is a 63-year-old man with internal defibrillator that presents with syncope. He denies chest pain shortness of breath cough congestion abdominal pain nausea vomiting or diarrhea. Denies fever or chills. He has had a complicated course the last 10 days or so. He had an obstructing kidney stone and underwent lithotripsy and stent placement 4. Neck The patient then underwent influenza and COVID vaccines. He quickly developed flulike symptoms. Today he was standing in the kitchen and had a syncopal episode. It was witnessed by his . He denies striking his head but has bruising to the left cheek. Patient underwent evaluation for syncope. CT head revealed no acute intracranial abnormality. Chest x-ray reveals no cardio pulmonary abnormality at this time. Laboratory studies reveals no leukocytosis, anemias. CMP reveals hyponatremia, elevated creatinine. Lactic acid was within normal limits. Troponin initial was 17 with a 2-hour delta of -1.7. Discussed the case with Dr. Larson. Patient's heart score is a 5. He advises observation. Spoke with the hospitalist who is advising interrogation of his defibrillator. Patient has a history be, ischemic cardiomyopathy, arrhythmias. Hospitalist believes he can likely be managed at home. Internal pacemaker defibrillator interrogated. No evidence of cardiac events this evening. Last event was on 01/05/24. I did speak with Dr. Velez again. Patient was admitted for similar episode approximately [address] Velez is asking for urinalysis. Probably on too much Entresto and that is what is making him hypotensive at times. At this time, I will be transitioning care to Dr. Larson. 63-year-old male checked out to me at shift change. We are awaiting urinalysis, as the patient had recent stent placement to the kidney evidently for stone. Urinalysis shows significant urinary tract infection. CT of the abdomen pelvis is completed to make sure he is not obstructed. He does not appear obstructed by CT. Patient be observed. He is given IV Rocephin here. This is likely the cause of syncopal episodes, diaphoresis, shaking, hypotension, etc. He does not however appear septic. Spoke with hospitalist, agrees to observe. Lab Data 01/06/24 21:17 01/06/24 21:17 Radiology Impressions Chest X-Ray 01/06/24 21:20 IMPRESSION: No acute findings. Head CT 01/06/24 21:20 IMPRESSION: No acute intracranial abnormality. Laboratory Results WBC 9.93 10^3/uL (3.29-11.43) 01/06/24 21:17 RBC 5.14 10^6/uL (3.85-5.65) 01/06/24 21:17 Hgb 15.20 g/dL (11.27-16.99) 01/06/24 21:17 Hct 46.6 % (37-53) 01/06/24 21:17 MCV 90.7 fl (82-101) 01/06/24 21:17 MCH 29.6 pg (27-33) 01/06/24 21:17 MCHC 32.6 g/dL (30-55) 01/06/24 21:17 RDW 14.1 % (12.1-15.1) 01/06/24 21:17 Plt Count 197 10^3/cmm (157-399) 01/06/24 21:17 MPV 9.4 fL (7.4-10.4) 01/06/24 21:17 Neut % (Auto) 67.9 % 01/06/24 21:17 Lymph % (Auto) 17.5 % 01/06/24 21:17 Schleicher % (Auto) 13.7 % 01/06/24 21:17 Eos % (Auto) 0.0 % 01/06/24 21:17 Baso % (Auto) 0.4 % 01/06/24 21:17 Neut # (Auto) 6.74 10^3/uL (1.8-7.7) 01/06/24 21:17 Lymph # (Auto) 1.7 10^3/uL (0.8-4.8) 01/06/24 21:17 [place] # (Auto) 1.4 10^3/uL (0.2-0.9) H 01/06/24 21:17 Eos # (Auto) 0.0 10^3/uL (0.0-0.8) 01/06/24 21:17 Baso # (Auto) 0.0 10^3/uL (0.0-0.1) 01/06/24 21:17 Nucleated RBC % (auto) 0 % 01/06/24 21:17 Nucleated RBCs # 0.0 /100WBC 01/06/24 21:17 PT 19.40 SECONDS (12.1-14.9) H 01/06/24 21:17 INR 1.58 (0.8-1.2) H 01/06/24 21:17 Sodium 130 mmol/L (136-145) L 01/06/24 21:17 Potassium 4.2 mmol/L (3.5-5.1) 01/06/24 21:17 Chloride 96 mmol/L (98-107) L 01/06/24 21:17 Carbon Dioxide 22 mmol/L (22-29) 01/06/24 21:17 Anion Gap 16.2 (5-19) 01/06/24 21:17 BUN 19 mg/dL (8-23) 01/06/24 21:17 Creatinine 1.3 mg/dL (0.7-1.2) H 01/06/24 21:17 GFR Calculation 55.9 mL/min (90-130) L 01/06/24 21:17 Glucose 123 mg/dL (65-115) H 01/06/24 21:17 Calculated Osmolality 274 mOsm/kg (285-295) L 01/06/24 21:17 Lactic Acid 2.0 mmol/L (0.5-2.2) 01/06/24 21:17 Calcium 7.6 mg/dL (8.5-10.5) L 01/06/24 21:17 Total Bilirubin 0.6 mg/dL (0.15-1.2) 01/06/24 21:17 AST 30 U/L (0-40) 01/06/24 21:17 ALT 23 U/L (0-41) 01/06/24 21:17 Alkaline Phosphatase 91 U/L (40-130) 01/06/24 21:17 Troponin T Baseline 17 ng/L (0-15) H 01/06/24 21:17 Troponin T 120 Minute 15.63 ng/L (0-15) H 01/06/24 22:59 Delta Troponin T -1.37 ABS# (0-10) L 01/06/24 22:59 Troponin T Hi Sens 6Hr 10.70 ng/L (0-15) 01/07/24 04:26 Troponin T Hi Sens 6Hr Delta -6.30 ng/L (0-12) L 01/07/24 04:26 Total Protein 6.3 g/dL (6.6-8.7) L 01/06/24 21:17 Albumin 3.6 g/dL (3.5-5.2) 01/06/24 21:17 Globulin 2.7 g/dL (1.3-4.6) 01/06/24 21:17 Urine Color Yellow (Yellow) 01/07/24 03:02 Urine Appearance Cloudy (CLEAR) A 01/07/24 03:02 Urine pH 5.5 (5-7) 01/07/24 03:02 Ur Specific [place] 1.018 (1.005-1.030) 01/07/24 03:02 Urine Protein 1+ (Negative) A 01/07/24 03:02 Urine Glucose (UA) Negative (Normal) 01/07/24 03:02 Urine Ketones Negative (Negative) 01/07/24 03:02 Urine Blood Negative (Negative) 01/07/24 03:02 Urine Nitrate Negative (Negative) 01/07/24 03:02 Urine Bilirubin Negative (Negative) 01/07/24 03:02 Urine Urobilinogen 1.0 mg/dL (Negative) 01/07/24 03:02 Ur Leukocyte Esterase 2+ (Negative) A 01/07/24 03:02 Urine RBC 0-4 /hpf (0-2) H 01/07/24 03:02 Urine WBC >100 /hpf (0-5) H 01/07/24 03:02 Ur Squamous Epith Cells 5-10 /hpf (0-5) H 01/07/24 03:02 Amorphous Sediment Not Reportable 01/07/24 03:02 Urine Bacteria 4+ /hpf (NONE) H 01/07/24 03:02 Coronavirus (PCR) Negative (Negative) 01/06/24 22:42 Influenza A (PCR) Negative (Negative) 01/06/24 22:42 Influenza Type B (PCR) Negative (Negative) 01/06/24 22:42 RSV (PCR) Negative (Negative) 01/06/24 22:42 Clincial Decision Support The following clinical decision support tools were used to aid in care of the patient HEART Score -> History: Moderately Suspicious, EKG: Normal, Age: 45-64 yrs, Risk Factors: >/=3 Risk Factors, Troponin: Baseline Trop 16-45 ng/L. Resulting HEART Score: 5. Discharge Plan Discharge Patient Disposition: Admitted As Inpatient Admit Provider: Velasquez Velez Clinical Impression: On anticoagulant therapy, Ischemic cardiomyopathy, Acute hypotension, Orthostatic hypotension Condition: Stable Coding Level of Care Code ED Press Loader for Oni Wong
[2024-01-06 23:00] VITALS: BP 86/64; PULSE 71; RESP 17; TEMP 37; O2SAT 99
[2024-01-06 23:05] VITALS: BP 86/64; BP 93/70; BP 94/66; PULSE 71; PULSE 76; PULSE 82
--- NOTE | 2024-01-06 23:21 | ECG_ITS ---
[facility] Test Date: 2024-01-06 Pat Name: Jaime Daugherty Department: Room: Gender: Male Draw End Hand: : 1960 Requested By: Ryan Eaton Order Number: [id number] [place] MD: Soheila Porter M.D. Measurements Intervals [place] Rate: 72 P: 72 SC: 156 QRS: -72 QRSD: 94 T: 97 QT: 402 QTc: 440 Interpretive Statements SINUS RHYTHM INDETERMINATE AXIS LOW QRS VOLTAGE IN PRECORDIAL LEADS [QRS DEFLECTION < 1.0 mV IN CHEST LEADS] LEFT ANTERIOR FASCICULAR BLOCK [QRS AXIS <= -45, QR IN I, RS IN II] ANTEROSEPTAL MYOCARDIAL INFARCTION , OF INDETERMINATE AGE [40+ ms Q WAVE IN V1-V4] Compared to ECG 01/06/2024 21:10:47 Left anterior fascicular block now present Myocardial infarct finding still present Electronically Signed On 01-09-2024 01:04:04 CDT by Soheila Porter M.D. [email or web address]
[2024-01-06 23:24] LABS: Troponin 5 2HR 15.63 ng/L (0-15)
[2024-01-06 23:24] LABS: Covid PCR NEGATIVE (Negative); Influenza A NEGATIVE (Negative); Influenza B NEGATIVE (Negative); Respiratory Syncytial Virus Ce NEGATIVE (Negative)
[2024-01-06 23:26] LABS: Troponin 5 2HR Delta -1.37 ABS# (0-10)
[2024-01-06 23:30] VITALS: BP 94/70; PULSE 68; RESP 12; O2SAT 100
[2024-01-07] VITALS (12 sets, daily range): BP systolic 95–113; BP diastolic 59–76; PULSE 57–91; RESP 12–19; TEMP 36.4–37.2; O2SAT 95–100
[2024-01-07 03:20] LABS: Bilirubin Urine Negative (Negative); Blood Urine Negative (Negative); Glucose Urine UA Negative (Normal); Ketones Urine Negative (Negative); Leukocyte Esterase Urine 2+ (Negative); Nitrate Urine Negative (Negative); Protein Urine 1+ (Negative); Specific Gravity, Urine 1.018 (1.005-1.030); Urine Appearance Cloudy (CLEAR); Urine Color Yellow (Yellow); pH Urine 5.5 (5-7)
[2024-01-07 03:40] LABS: Add Urine Culture? Yes; Add Urine Microscopic? YES; Bacteria Urine 4+ /hpf; RBC Urine 0-4 /hpf (0-2); WBC Urine >100 /hpf (0-5)
--- NOTE | 2024-01-07 03:55 | CTR_ITS ---
PROCEDURE INFORMATION: Exam: CT Abdomen And Pelvis Without Contrast Exam date and time: 01/07/2024 4:07 AM Age: 63 years old Clinical indication: Other: Bacteriuria/hypotension; Prior surgery; Surgery date: 1-6 months; Surgery type: Left ureteral stent; Patient HX: Bacteriuria with hypotension; Additional info: UTI with HX of stent TECHNIQUE: Imaging protocol: Computed tomography of the abdomen and pelvis without contrast. Radiation optimization: All CT scans at this facility use at least one of these dose optimization techniques: automated exposure control; mA and/or kV adjustment per patient size (includes targeted exams where dose is matched to clinical indication); or iterative reconstruction. COMPARISON: CR (CHEST, ) 01/06/2024 9:32 PM RADIATION DOSE METRICS: Total DLP (mGy-cm): 775.92 FINDINGS: Lungs: Lung bases are clear as visualized. Liver: There is diffuse fatty infiltration of the liver. The liver is otherwise normal. Gallbladder and biliary ducts: There is a gallstone within the gallbladder. No pericholecystic inflammatory changes noted. Pancreas: Normal. No ductal dilation. Spleen: Normal. No splenomegaly. Adrenal glands: Normal. No mass. Kidneys and ureters: There is a left ureteral stent in place. The proximal pigtail is within the central collecting system of the left kidney. The distal pigtail is within the urinary bladder. There is minimal hydronephrosis. There is more moderate hydroureter. No definite calcification is seen along the left ureter/adjacent to the ureteral stent. There is fat stranding within the hilum of the left kidney as well as mild perinephric fat stranding. Findings could be inflammatory in origin. Stomach and bowel: There are air-fluid levels involving nondilated loops of small bowel. No large or small bowel wall thickening is appreciated. There are a few scattered colonic diverticula. Appendix: The appendix is not definitely identified. Intraperitoneal space: Unremarkable. No free air. No significant fluid collection. Vasculature: The aorta is normal in caliber. There is calcified plaque involving the aorta and its branch vessels. Lymph nodes: There are multiple small as well as slightly enlarged retroperitoneal lymph nodes regional to the left kidney. Urinary bladder: There is mild wall thickening involving the posterior wall of the urinary bladder most pronounced toward the bladder dome and to a lesser degree the bladder base. This could be inflammatory or neoplastic in origin. Recommend clinical correlation. Reproductive: There is a right-sided hydrocele. No abnormalities are otherwise noted with regards to the reproductive organs. Bones/joints: Unremarkable. No acute fracture. Soft tissues: Fat containing mass noted involving the right lateral abdominal wall musculature likely related to a lipoma. CT/CT kidney stone [id number] IMPRESSION: 1. Left ureteral stent in good position. There is minimal residual hydronephrosis with a slightly greater degree of ureteral dilatation. There is fat stranding within the hilum of the left kidney as well as mild perinephric fat stranding which could be inflammatory in origin. 2. Air-fluid levels involving nondilated loops of bowel. This is a nonspecific finding but can be seen with an ileus. 3. Mild asymmetric wall thickening involving the posterior wall of the bladder. Both inflammatory and neoplastic causes are to be considered. Recommend clinical correlation. 4. Multiple small as well as slightly enlarged retroperitoneal lymph nodes regional to the left kidney. 5. Please see above comments for additional details.
[2024-01-07] MEDS: cefTRIAXone 1,000 mg SDV 1000 MG IVP (04:01)
--- NOTE | 2024-01-07 06:28 | P.HP_ITS ---
Providers/Chief Complaint 2 Admitting Physician: Velasquez Velez MD Primary Care Provider: SHEILA Shetty Chief Complaint: syncope History of Present Illness Jaime Daugherty is a 63 year old male with a past medical history significant for heart failure with reduced ejection fraction status post IVCD placement, LV thrombus on warfarin, COPD, tobacco use disorder, ischemic cardiomyopathy, hypertension, and multiple other comorbidities who presents to the emergency department with recurrent syncope. Endorses associated diaphoresis and chills. He reports recent obstructing renal stone for which he underwent lithotripsy with stent placement at [facility] in [place] on December 25. Exertion worsens symptoms. Rest improves. Denies chest pain, shortness of breath or chills. In the emergency department, urinalysis was consistent with infection. CT scan was negative for hydronephrosis showing stent in good positioning. Review of Systems 2 Narrative: A complete review of systems was obtained and is negative except as stated in HPI. Medications/Allergies Home Medications Medication Instructions Recorded Confirmed Last Taken Type aspirin 81 mg tablet,delayed 81 mg PO DAILY 11/30/20 01/07/24 10/15/23 History release warfarin 6 mg tablet 6 mg PO BEDTIME 10/16/23 01/07/24 10/14/23 History atorvastatin 40 mg tablet See Rx Instructions .Route 11/22/23 01/07/24 Unknown Rx .COMPLEX #90 tabs sacubitril 97 mg-valsartan 103 mg 1 tab PO BID #180 tabs 12/28/23 01/07/24 Unknown Rx tablet (Entresto) Allergies Allergy/AdvReac Type Severity Reaction Status Date / Time No Known Allergies Allergy Verified 10/25/23 09:30 PFSH Acute 2 PFSH: Medical History (Updated 01/07/24 @ 06:44 by Velasquez Velez MD) Syncope Occlusion of LAD (left anterior descending) artery Cardiac LV ejection fraction 10-20% Dilated cardiomyopathy Amphetamine use disorder, moderate Smoking Severe sepsis Abnormal findings on diagnostic imaging of skull and head, not elsewhere classified Subtherapeutic international normalized ratio (INR) Acute hypotension Congestive heart failure Hyperlipidemia LV (left ventricular) mural thrombus Atherosclerotic heart disease [place] coronary artery w/angina pectoris Myocardial infarction Atherosclerosis CAD (coronary artery disease) Hypertension Heart failure, left, with LVEF <=30% Anemia COPD (chronic obstructive pulmonary disease) LV (left ventricular) mural thrombus Ischemic cardiomyopathy Bronchitis Surgical History History of ankle surgery History of implantable cardioverter-defibrillator (ICD) placement Family History Father CAD (coronary artery disease) Diabetes Mother Hypertension Sister Cancer Family/Other Stroke Grandfather Stroke Denies family history of Clotting disorder Dementia Chronic kidney disease (CKD) Suicide Anesthesia complication Bleeding disorder Lung disease Social History Smoking and tobacco/nicotine status: current every day tobacco/nicotine user Alcohol intake: current Substance/Drug Use: former Date of last use: amphetamines Vitals/I&O/Wt Last Vital Signs Temp 97.5 F L 01/07/24 05:35 Pulse 69 01/07/24 05:35 Resp 19 H 01/07/24 05:35 BP 100/69 01/07/24 05:35 Pulse Ox 99 01/07/24 05:35 O2 Del Method Room Air 01/07/24 05:35 O2 Flow Rate 2 01/07/24 00:30 01/06/24 01/06/24 01/07/24 14:59 22:59 06:59 Intake Total 1000 / 1000 Balance 1000 / 1000 Weight last 48 hrs Weight 92.125 kg Weight 81.647 kg Physical Exam 2 Narrative: General: Patient is awake and alert. Head: Normocephalic. Atraumatic. EOM intact. Neck: No JVD. Cardiovascular: RRR. No gallops. No murmurs. Lungs: Clear to auscultation, no use of accessory muscles, no crackles or wheezes. Skin: No jaundice. No rashes. Abdomen: Normal bowel sounds, abdomen soft and nontender. Rectal: Rectal exam not performed since no symptoms indicated blood loss. Extremities: No cyanosis or clubbing. Musculoskeletal: No swollen or erythematous joints. Neurological: Moves all 4 extremities. No myoclonus. Data 01/06/24 21:17 01/06/24 21:17 A&P Assessment and plan (1) UTI (urinary tract infection): Acute complicated urinary tract infection Likely sequela from recent stent placement Reflex urine to culture CT imaging reviewed, negative for hydronephrosis Start ceftriaxone (2) Syncope: Patient recently admitted for syncope with negative workup ICD interrogated in ER, negative for culprit arrhythmias Fall precautions Qualifiers: Syncope type: unspecified Qualified Code(s): R55 - Syncope and collapse (3) Congestive heart failure: Chronic heart failure with reduced ejection fraction Strict I's and O's Daily weights Qualifiers: Heart failure type: systolic Heart failure chronicity: chronic Qualified Code(s): I50.22 - Chronic systolic (congestive) heart failure (4) Ischemic cardiomyopathy: Continue aspirin (5) ICD (implantable cardioverter-defibrillator), dual, in situ: ICD interrogated, no acute findings (6) Dyslipidemia: Continue statin Plan DVT prophylaxis: Continue warfarin, pharmacy to dose for LV thrombus dosing at 2-3 CODE STATUS: Full code Attestations 2 Medical Necessity Statement*: Patient presents with syncope, and diaphoresis in the setting of recent urologic procedure, found to have acute complicated urinary tract infection with expected hospitalization not to cross 2 midnights for IV antibiotics and supportive care. Coding Level of Care Code Acute Code for [facility] Diagnoses UTI (urinary tract infection) N39.0 Syncope R55 Syncope type: unspecified Chronic systolic congestive heart failure I50.22 Heart failure type: systolic Heart failure chronicity: chronic Ischemic cardiomyopathy I25.5 ICD (implantable cardioverter-defibrillator), dual, in situ Z95.810 Dyslipidemia E78.5
[2024-01-07] MEDS: aspirin 81 mg EC Tablet PO (08:26)
[2024-01-07] MEDS: atorvastatin 40 mg Tablet PO (08:26)
[2024-01-07] MEDS: warfarin 3 mg Tablet 6 MG PO (14:23)
[2024-01-07] MEDS: warfarin 2 mg Tablet PO (14:24)
--- NOTE | 2024-01-07 15:02 | PM.MISC ---
Miscellaneous Note Note: Continue management as per H&P.
--- NOTE | 2024-01-07 21:27 | PC.NURSE ---
Dr. Velez contacted to verify that patient's home medication Entresto is not ordered. He stated that it is on hold due to elevated creatinine and soft blood pressures. Patient educated on this.
[2024-01-08] VITALS (7 sets, daily range): BP systolic 107–124; BP diastolic 67–79; PULSE 77–87; RESP 16–19; TEMP 36.4–37.7; O2SAT 95–98
[2024-01-08] MEDS: cefTRIAXone 1,000 mg SDV 1000 MG IVP (03:14)
[2024-01-08 06:09] LABS: Basophils % 0.4 %; Eosinophils % 0.2 %; Hematocrit 43.8 % (37-53); Mean Corpuscular HGB Conc 33.3 g/dL (30-55); Mean Corpuscular Hemoglobin 29.6 pg (27-33); Mean Corpuscular Volume 88.8 fl (82-101); Mean Platelet Volume 10.1 fL (7.4-10.4); Monocytes # 0.8 10^3/uL (0.2-0.9); Monocytes % 9.3 %; Neutrophils # 4.96 10^3/uL (1.8-7.7); Neutrophils % 55.8 %; Nucleated Red Blood Cells % 0 %; Platelet Count 232 10^3/cmm (157-399); Red Blood Count 4.93 10^6/uL (3.85-5.65); Red Cell Distribution Width 13.9 % (12.1-15.1); White Blood Count 8.91 10^3/uL (3.29-11.43)
[2024-01-08 06:12] LABS: Blood Urea Nitrogen 19 mg/dL (8-23); Calcium 7.8 mg/dL (8.5-10.5); Carbon Dioxide 18 mmol/L (22-29); Chloride 100 mmol/L (98-107); Creatinine Clr Calc Pharmacy 103.1511; Glomerular Filtration Rate 85.5 mL/min (90-130); Glucose 112 mg/dL (65-115); Magnesium 2.2 mg/dL (1.7-2.3); Osmolality Calculated 273 mOsm/kg (285-295); Phosphorus 2.7 mg/dL (2.5-4.5); Sodium 130 mmol/L (136-145)
[2024-01-08 07:06] LABS: Slide Review Slide Review Perform
[2024-01-08 07:54] LABS: INR 1.66 (0.8-1.2)
[2024-01-08] MEDS: atorvastatin 40 mg Tablet PO (08:06)
[2024-01-08] MEDS: aspirin 81 mg EC Tablet PO (08:06)
[2024-01-08 12:20] LABS: Estmated Average Glucose 137; Hemoglobin A1C 6.4 % (4.0-6.0)
[2024-01-08 12:36] LABS: Procalcitonin 0.21 ng/mL (0-0.5); Thyroid Stimulating Hormone 1.79 uIU/mL (0.27-4.20); Vitamin B12 524 pg/mL (232-1245)
[2024-01-08 12:49] LABS: Chol HDL Ratio 4.59 mg/dL (1.0-5.00); Cholesterol 133 mg/dL (0-200); HDL Cholesterol 29 mg/dL (60-100); Iron 25 ug/dL (59-158); LDL Cholesterol Calculated 71 mg/dL (50-129); Percent Saturation 12.7 % (20-50); Total Iron Binding Capacity 196 mcg/dl; Triglycerides 164 mg/dL (0-150); Unsaturated Iron Binding 171 ug/dL (112-347); VLDL Cholestrol Calculation 33 mg/dL (0-30)
--- NOTE | 2024-01-08 12:52 | P.DS_ITS ---
Discharge Providers Date of Admission: 01/07/24 04:54 Date of Discharge: January 08, 2024 Attending Provider at Admission: Velasquez Velez MD Attending Provider at Discharge: Jaycob Frazier MD Primary Care Provider: SHEILA Shetty Diagnoses at Discharge Discharge Diagnosis (1) UTI (urinary tract infection): Status: Acute (2) Syncope: Status: Acute Qualifiers: Syncope type: unspecified Qualified Code(s): R55 - Syncope and collapse (3) Congestive heart failure: Status: Acute Qualifiers: Heart failure chronicity: chronic Heart failure type: systolic Qualified Code(s): I50.22 - Chronic systolic (congestive) heart failure (4) Ischemic cardiomyopathy: Status: Acute (5) ICD (implantable cardioverter-defibrillator), dual, in situ: Status: Acute (6) Dyslipidemia: Status: Acute Reason for Visit Reason for Visit: syncope Brief History: History as per HPI: Jaime Daugherty is a 63 year old male with a past medical history significant for heart failure with reduced ejection fraction status post IVCD placement, LV thrombus on warfarin, COPD, tobacco use disorder, ischemic cardiomyopathy, hypertension, and multiple other comorbidities who presents to the emergency department with recurrent syncope. Endorses associated diaphoresis and chills. He reports recent obstructing renal stone for which he underwent lithotripsy with stent placement at [facility] in [place] on December 25. Exertion worsens symptoms. Rest improves. Denies chest pain, shortness of breath or chills. In the emergency department, urinalysis was consistent with infection. CT scan was negative for hydronephrosis showing stent in good positioning. Hospital Course Hospital Course Patient was admitted to the hospital further evaluation and management of complicated UTI in setting of ureteral stent. On admission there were concerns for sepsis in setting of hypotension which resolved with IV hydration. He was started on broad-spectrum IV antibiotics and his antihypertensives were withheld. During hospitalization his blood culture and urine culture remain negative. Patient's old culture history from outside hospital was reviewed. Patient requested to be discharged at the earliest. His blood pressures have improved. Patient would have benefited from restarting of antihypertensive and close monitoring in setting of hypotension on admission though he was adamant of being discharged. He has been discharged in hemodynamically stable condition on prolonged course of oral Levaquin 500 mg daily for next 10 days advised to follow-up with his urologist as an outpatient for removal of ureteral stent. He is to check his INR every third day while being on Levaquin because of interaction between Levaquin and Coumadin. Physical Exam Narrative: General: Patient is awake and alert. Head: Normocephalic. Atraumatic. EOM intact. Neck: No JVD. Cardiovascular: RRR. No gallops. No murmurs. Lungs: Clear to auscultation, no use of accessory muscles, no crackles or wheezes. Skin: No jaundice. No rashes. Abdomen: Normal bowel sounds, abdomen soft and nontender. Rectal: Rectal exam not performed since no symptoms indicated blood loss. Extremities: No cyanosis or clubbing. Musculoskeletal: No swollen or erythematous joints. Neurological: Moves all 4 extremities. No myoclonus. Discharge Data Studies Completed and Pending Completed Studies During Hospitalization Category Date Time Status CT head wo con* [id number] Stat Cat Scan 01/06/24 21:[address] kidney stone [id number] Stat Cat Scan 01/07/24 03:55 Completed XR chest 2V* [id number] Stat Exams 01/06/24 21:20 Completed Pending at discharge Category Date Time Status Complete Blood Count w/Auto AM LABS Lab 01/09/24 04:00 Ordered Comprehensive Metabolic Panel AM LABS Lab 01/09/24 04:00 Ordered Folate Level AM LABS Lab 01/09/24 04:00 Ordered MAG [Magnesium] AM LABS Lab 01/09/24 04:00 Ordered MAG [Magnesium] AM LABS Lab 01/10/24 04:00 Ordered MAG [Magnesium] AM LABS Lab 01/11/24 04:00 Ordered Prothrombin Time INR AM LABS Lab 01/09/24 04:00 Ordered Prothrombin Time INR AM LABS Lab 01/10/24 04:00 Ordered Urine Culture Stat Lab 01/07/24 03:02 Results Radiology Impressions Chest X-Ray 01/06/24 21:20 IMPRESSION: No acute findings. Head CT 01/06/24 21:20 IMPRESSION: No acute intracranial abnormality. Abdomen/Pelvis CT 01/07/24 03:55 IMPRESSION: 1. Left ureteral stent in good position. There is minimal residual hydronephrosis with a slightly greater degree of ureteral dilatation. There is fat stranding within the hilum of the left kidney as well as mild perinephric fat stranding which could be inflammatory in origin. 2. Air-fluid levels involving nondilated loops of bowel. This is a nonspecific finding but can be seen with an ileus. 3. Mild asymmetric wall thickening involving the posterior wall of the bladder. Both inflammatory and neoplastic causes are to be considered. Recommend clinical correlation. 4. Multiple small as well as slightly enlarged retroperitoneal lymph nodes regional to the left kidney. 5. Please see above comments for additional details. Microbiology 01/07/24 03:02 Urine,Clean Catch Urine Culture - Preliminary Laboratory Results WBC 8.91 10^3/uL (3.29-11.43) 01/08/24 05:09 RBC 4.93 10^6/uL (3.85-5.65) 01/08/24 05:09 Hgb 14.60 g/dL (11.27-16.99) 01/08/24 05:09 Hct 43.8 % (37-53) 01/08/24 05:09 MCV 88.8 fl (82-101) 01/08/24 05:09 MCH 29.6 pg (27-33) 01/08/24 05:09 MCHC 33.3 g/dL (30-55) 01/08/24 05:09 RDW 13.9 % (12.1-15.1) 01/08/24 05:09 Plt Count 232 10^3/cmm (157-399) 01/08/24 05:09 MPV 10.1 fL (7.4-10.4) 01/08/24 05:09 Neut % (Auto) 55.8 % 01/08/24 05:09 Lymph % (Auto) 34.0 % 01/08/24 05:09 [place] % (Auto) 9.3 % 01/08/24 05:09 Eos % (Auto) 0.2 % 01/08/24 05:09 Baso % (Auto) 0.4 % 01/08/24 05:09 Neut # (Auto) 4.96 10^3/uL (1.8-7.7) 01/08/24 05:09 Lymph # (Auto) 3.0 10^3/uL (0.8-4.8) 01/08/24 05:09 [place] # (Auto) 0.8 10^3/uL (0.2-0.9) 01/08/24 05:09 Eos # (Auto) 0.0 10^3/uL (0.0-0.8) 01/08/24 05:09 Baso # (Auto) 0.0 10^3/uL (0.0-0.1) 01/08/24 05:09 Nucleated RBC % (auto) 0 % 01/08/24 05:09 Nucleated RBCs # 0.0 /100WBC 01/08/24 05:09 PT 20.20 SECONDS (12.1-14.9) H 01/08/24 06:53 INR 1.66 (0.8-1.2) H 01/08/24 06:53 Sodium 130 mmol/L (136-145) L 01/08/24 05:09 Potassium 4.0 mmol/L (3.5-5.1) 01/08/24 05:09 Chloride 100 mmol/L (98-107) 01/08/24 05:09 Carbon Dioxide 18 mmol/L (22-29) L 01/08/24 05:09 Anion Gap 16.0 (5-19) 01/08/24 05:09 BUN 19 mg/dL (8-23) 01/08/24 05:09 Creatinine 0.9 mg/dL (0.7-1.2) 01/08/24 05:09 GFR Calculation 85.5 mL/min (90-130) L 01/08/24 05:09 Glucose 112 mg/dL (65-115) 01/08/24 05:09 Estimat Average Glucose 137 01/08/24 05:09 Hemoglobin A1c 6.4 % (4.0-6.0) H 01/08/24 05:09 Calculated Osmolality 273 mOsm/kg (285-295) L 01/08/24 05:09 Lactic Acid 2.0 mmol/L (0.5-2.2) 01/06/24 21:17 Calcium 7.8 mg/dL (8.5-10.5) L 01/08/24 05:09 Phosphorus 2.7 mg/dL (2.5-4.5) 01/08/24 05:09 Magnesium 2.2 mg/dL (1.7-2.3) 01/08/24 05:09 Iron 25 ug/dL (59-158) L 01/08/24 05:09 TIBC 196 mcg/dl 01/08/24 05:09 % Saturation 12.7 % (20-50) L 01/08/24 05:09 Unsat Iron Binding 171 ug/dL (112-347) 01/08/24 05:09 Total Bilirubin 0.6 mg/dL (0.15-1.2) 01/06/24 21:17 AST 30 U/L (0-40) 01/06/24 21:17 ALT 23 U/L (0-41) 01/06/24 21:17 Alkaline Phosphatase 91 U/L (40-130) 01/06/24 21:17 Troponin T Baseline 17 ng/L (0-15) H 01/06/24 21:17 Troponin T 120 Minute 15.63 ng/L (0-15) H 01/06/24 22:59 Delta Troponin T -1.37 ABS# (0-10) L 01/06/24 22:59 Troponin T Hi Sens 6Hr 10.70 ng/L (0-15) 01/07/24 04:26 Troponin T Hi Sens 6Hr Delta -6.30 ng/L (0-12) L 01/07/24 04:26 Total Protein 6.3 g/dL (6.6-8.7) L 01/06/24 21:17 Albumin 3.6 g/dL (3.5-5.2) 01/06/24 21:17 Globulin 2.7 g/dL (1.3-4.6) 01/06/24 21:17 Triglycerides 164 mg/dL (0-150) H 01/08/24 05:09 Cholesterol 133 mg/dL (0-200) 01/08/24 05:09 LDL Cholesterol, Calc 71 mg/dL (50-129) 01/08/24 05:09 Total VLDL Cholesterol 33 mg/dL (0-30) H 01/08/24 05:09 HDL Cholesterol 29 mg/dL (60-100) L 01/08/24 05:09 Cholesterol/HDL Ratio 4.59 mg/dL (1.0-5.00) 01/08/24 05:09 Vitamin B12 524 pg/mL (232-1245) 01/08/24 05:09 Procalcitonin 0.21 ng/mL (0-0.5) 01/08/24 05:09 TSH 1.79 uIU/mL (0.27-4.20) 01/08/24 05:09 Urine Color Yellow (Yellow) 01/07/24 03:02 Urine Appearance Cloudy (CLEAR) A 01/07/24 03:02 Urine pH 5.5 (5-7) 01/07/24 03:02 Ur Specific [place] 1.018 (1.005-1.030) 01/07/24 03:02 Urine Protein 1+ (Negative) A 01/07/24 03:02 Urine Glucose (UA) Negative (Normal) 01/07/24 03:02 Urine Ketones Negative (Negative) 01/07/24 03:02 Urine Blood Negative (Negative) 01/07/24 03:02 Urine Nitrate Negative (Negative) 01/07/24 03:02 Urine Bilirubin Negative (Negative) 01/07/24 03:02 Urine Urobilinogen 1.0 mg/dL (Negative) 01/07/24 03:02 Ur Leukocyte Esterase 2+ (Negative) A 01/07/24 03:02 Urine RBC 0-4 /hpf (0-2) H 01/07/24 03:02 Urine WBC >100 /hpf (0-5) H 01/07/24 03:02 Ur Squamous Epith Cells 5-10 /hpf (0-5) H 01/07/24 03:02 Amorphous Sediment Not Reportable 01/07/24 03:02 Urine Bacteria 4+ /hpf (NONE) H 01/07/24 03:02 Coronavirus (PCR) Negative (Negative) 01/06/24 22:42 Influenza A (PCR) Negative (Negative) 01/06/24 22:42 Influenza Type B (PCR) Negative (Negative) 01/06/24 22:42 RSV (PCR) Negative (Negative) 01/06/24 22:42 Vitals Last Vital Signs Temp 97.5 F L 01/08/24 11:37 Pulse 77 01/08/24 11:37 Resp 18 01/08/24 11:37 BP 124/79 01/08/24 11:37 Pulse Ox 96 01/08/24 11:37 O2 Del Method Room Air 01/08/24 11:37 O2 Flow Rate 2 01/07/24 00:30 Discharge Plan Discharge Patient Disposition: Home Condition: Stable Prescriptions: New levofloxacin 500 mg tablet 500 mg PO DAILY 10 Days Qty: 10 0RF Continued aspirin 81 mg tablet,delayed release (DR/EC) 81 mg PO DAILY atorvastatin 40 mg tablet See Rx Instructions .ROUTE .COMPLEX Qty: 90 0RF Dose Instruction: TAKE 1 TABLET BY MOUTH DAILY Rx Instructions: TAKE 1 TABLET BY MOUTH DAILY Entresto 97-103 mg tablet 1 tab PO BID Qty: 180 0RF Hold Instructions: Resume on 10/18/23. warfarin 6 mg tablet 6 mg PO BEDTIME Rx Instructions: Take 1 tab daily every night Discharge Orders: Discharge Order (Routine); Ordered 01/08/24 Ordered By: Jaycob Frazier Referrals: Sol De Oliveira FNP [Primary Care Provider] - 01/16/24 1:00 pm Patient Instructions: Levofloxacin (By mouth) (Levaquin, Levaquin Leva-robert), Urinary Tract Infection in Men (DC), Opioid Safety Activity Restrictions/Additional Instructions: Take levoflox daily for 10 days Levoflox decreases effectiveness of warfarin. Check Inr every 3 days while being on levoflox Follow up with outpatient urologit for stent removal on set appointment Discharge Attestations Time Spent in Discharge Care*: greater than 30 min Specific Discharge Activities: educating patient, discussing with pcp/other providers, discussing with family independence case manager/social workers/dc planners, documenting/other paperwork and evaluating patient/reviewing data Status at Discharge: Cognitive status at discharge: cognitively intact , Behavioral status at discharge: cooperative , Functional status at discharge: independent ambulation , Overall status at discharge: patient is back to baseline Quality Metrics Clinical Quality Measures [ No reported AMI, CVA or VTE this stay] Coding Level of Care Code 12787 Total time (in minutes) for Discharge: 60 Diagnoses UTI (urinary tract infection) N39.0 Syncope R55 Syncope type: unspecified Chronic systolic congestive heart failure I50.22 Heart failure chronicity: chronic Heart failure type: systolic Ischemic cardiomyopathy I25.5 ICD (implantable cardioverter-defibrillator), dual, in situ Z95.810 Dyslipidemia E78.5
[2024-01-08] MEDS: warfarin 3 mg Tablet 6 MG PO (13:53)
== END 2024-01-08 15:00 | disposition home or self-care (01) ==
LOC: ER 01-07 03:25 → MEDSURG 01-07 04:54
PROVIDERS: Emergency Medicine; Admitting Provider Internal Medicine; Emergency Provider Nurse Practitioner; PCP Nurse Practitioner Family; Visit Provider Student in an Organized Health Care Education/Training Program
DX: N39.0 Urinary tract infection, site not specified (principal); R55 Syncope and collapse; I11.0 Hypertensive heart disease with heart failure; I50.22 Chronic systolic (congestive) heart failure; I25.5 Ischemic cardiomyopathy; Z95.810 Presence of automatic (implantable) cardiac defibrillator; E78.5 Hyperlipidemia, unspecified; Z79.01 Long term (current) use of anticoagulants; J44.9 Chronic obstructive pulmonary disease, unspecified; I25.2 Old myocardial infarction; F17.200 Nicotine dependence, unspecified, uncomplicated
CPT/HCPCS: 0241U; 36415; 70450; 71046; 74176; 80048; 80053; 80061; 81001; 82607; 83036; 83540; 83550; 83605; 83735; 84100; 84145; 84443; 84484; 85025; 85610; 87077; 87086; 87186; 93005; 96374; 99285; G0378; J0696; J7030

== ENCOUNTER → 2024-01-11 09:16 | Outpatient (BNVA) | payer MEDICAID, SELFPAY | PROVIDERS: PCP Nurse Practitioner Family; Visit Provider Nurse Practitioner Family | DX: Z51.81 Encounter for therapeutic drug level monitoring (principal); Z79.01 Long term (current) use of anticoagulants | CPT/HCPCS: 85610 ==

== ENCOUNTER → 2024-01-15 14:01 | Outpatient (BNVA) | payer MEDICAID, SELFPAY | PROVIDERS: PCP Nurse Practitioner Family; Visit Provider Nurse Practitioner Family | DX: Z79.01 Long term (current) use of anticoagulants (principal) | CPT/HCPCS: 85610 ==

== ENCOUNTER → 2024-01-25 09:18 | Outpatient (BNVA) | payer MEDICAID, SELFPAY | PROVIDERS: PCP Nurse Practitioner Family; Visit Provider Nurse Practitioner Family | DX: N39.0 Urinary tract infection, site not specified (principal); I50.22 Chronic systolic (congestive) heart failure | CPT/HCPCS: 81000; 87086 ==

== ENCOUNTER → 2024-02-13 11:15 | Outpatient (BNVA) | payer MEDICAID, SELFPAY | PROVIDERS: PCP Nurse Practitioner Family; Visit Provider Nurse Practitioner Family | DX: D64.9 Anemia, unspecified (principal); R53.83 Other fatigue; Z79.01 Long term (current) use of anticoagulants | CPT/HCPCS: 82607; 83550; 85025; 85610 ==

== ENCOUNTER 2024-03-01 08:12 | Outpatient (CLI) | payer MEDICAID, SELFPAY ==
--- NOTE | 2024-03-01 08:45 | USCV_ITS ---
Jaime Daugherty Age: 64 Gender: M : 1960 Exam Date: 03/01/2024 09:01 Ordering Phys: Jimmy Bowre MD Technologist: [employer] Exam Location: [facility] – [place] Indication: syncope Risk Factors: Previous Vascular Surgery: Right Brachial BP: / Left Brachial BP: / Right Left Velocity (cm/s) Spectral Plaque Velocity (cm/s) Spectral Plaque Syst/Diast Broadening Syst/Diast Broadening 75.00/ 25.80 Prox CCA 78.70 / 30.30 67.30/ 30.20 Mid CCA 76.90 / 28.70 65.10/ 27.60 Distal CCA 72.80 / 31.30 68.10/ 33.80 Prox ICA 53.60 / 25.10 65.00/ 20.50 Mid ICA 48.10 / 23.30 35.20/ 17.80 Distal ICA 44.90 / 23.20 93.80 ECA 108.20 1.00 ICA/CCA 0.70 Antegrade Vertebral Antegrade 42.30/ 17.50 cm/s 31.50/ 14.50 cm/s Tri Subclavian Tri 66.90 54.50 CONCLUSIONS Right ICA stenosis <50%. Left ICA stenosis <50%. Normal antegrade Doppler flow noted in the right vertebral artery. Normal antegrade Doppler flow noted in the left vertebral artery. Scott Pruett MD (Electronically Signed) Final Date: 01 March 2024 15:36 S
== END 2024-03-01 08:13 | disposition home or self-care (01) ==
LOC: RAD 08:12
PROVIDERS: PCP Nurse Practitioner Family; Visit Provider Psychiatry & Neurology Neurology
DX: R55 Syncope and collapse (principal); I21.9 Acute myocardial infarction, unspecified; I63.9 Cerebral infarction, unspecified
CPT/HCPCS: 93880

== ENCOUNTER → 2024-04-22 13:20 | Outpatient (BNVA) | payer MEDICAID, SELFPAY | PROVIDERS: PCP Nurse Practitioner Family; Visit Provider Nurse Practitioner Family | DX: Z51.81 Encounter for therapeutic drug level monitoring (principal); Z79.01 Long term (current) use of anticoagulants | CPT/HCPCS: 85610 ==

== ENCOUNTER → 2024-07-31 10:26 | Outpatient (BNVA) | payer MEDICAID, SELFPAY | PROVIDERS: PCP Nurse Practitioner Family; Visit Provider Internal Medicine Cardiovascular Disease | DX: Z79.01 Long term (current) use of anticoagulants (principal) | CPT/HCPCS: 85610 ==

== ENCOUNTER → 2024-12-31 10:40 | Outpatient (BNVA) | payer MEDICAID, SELFPAY | PROVIDERS: PCP Nurse Practitioner Family; Visit Provider Nurse Practitioner Family | DX: Z79.01 Long term (current) use of anticoagulants (principal) | CPT/HCPCS: 85610 ==